=== PATIENT | female | born 1955 | race Caucasian/White ===

== ENCOUNTER → 2022-07-02 08:12 | Outpatient (BNVA) | payer MEDICARE, MEDICAID, SELFPAY | PROVIDERS: Visit Provider Podiatrist Foot & Ankle Surgery | DX: E11.42 Type 2 diabetes mellitus with diabetic polyneuropathy (principal); L60.3 Nail dystrophy; Z79.4 Long term (current) use of insulin | CPT/HCPCS: 99204 ==

== ENCOUNTER → 2022-07-15 08:08 | Outpatient (BNVA) | payer MEDICARE, MEDICAID, SELFPAY | PROVIDERS: Visit Provider Podiatrist Foot & Ankle Surgery | DX: E11.42 Type 2 diabetes mellitus with diabetic polyneuropathy (principal); L60.8 Other nail disorders; L60.3 Nail dystrophy; Z79.84 Long term (current) use of oral hypoglycemic drugs | CPT/HCPCS: 99213 ==

== ENCOUNTER 2022-10-12 14:48 | Outpatient (CLI) | payer MEDICARE, MEDICAID, SELFPAY ==
--- NOTE | 2022-10-12 15:00 | XR_ITS ---
WS: [id number] DEXA (DUAL ENERGY X-RAY ABSORPTIOMETRY) Bone mineral density was performed using a SinDelantal machine. HISTORY: STATUS, ASYMPTOMATIC POSTMENOPAUSAL COMPARISON: None available. Lumbar spine BMD (L1-L4): 0.853 g/cm2 T score: -2.7 Z score: -1.0 Total hip BMD: Left: 0.649 g/cm2. T score: -2.9 Z score: -1.5 Right: 0.635 g/cm2. T score: -3.0 Z score: -1.6 10 year probability of a major osteoporotic fracture is 18% XR/XR DEXA axial skeleton* [id number] IMPRESSION: OSTEOPOROSIS based upon the WHO classification for females.
== END 2022-10-12 14:49 | disposition home or self-care (01) ==
PROVIDERS: PCP Internal Medicine; Visit Provider Internal Medicine
DX: Z78.0 Asymptomatic menopausal state (principal); M81.0 Age-related osteoporosis without current pathological fracture
CPT/HCPCS: 77080

== ENCOUNTER 2022-11-18 13:36 | Outpatient (CLI) | payer MEDICARE, MEDICAID, SELFPAY ==
--- NOTE | 2022-11-18 | XR_ITS ---
WS: [id number] EXAMINATION: XR shoulder LT min 2V* [id number] REASON FOR EXAM: PAIN IN LEFT SHOULDER COMPARISON: None available. ORDER DATE: 11/18/2022 1:59 PM TECHNIQUE: 2 views of the left shoulder were obtained. X-RAY FINDINGS: No fractures or dislocations. Normal motion of the shoulder with internal/external rotation. No degenerative changes. Acromioclavicular joint appears unremarkable. Limited visualization of the adjacent hemithorax is unremarkable. XR/XR shoulder LT min 2V* [id number] IMPRESSION: No fractures or dislocations of the left shoulder.
== END 2022-11-18 13:37 | disposition home or self-care (01) ==
PROVIDERS: PCP Internal Medicine; Visit Provider Internal Medicine
DX: M25.512 Pain in left shoulder (principal)
CPT/HCPCS: 73030

== ENCOUNTER → 2023-04-05 08:32 | Outpatient (BNVA) | payer MEDICARE, MEDICAID, SELFPAY | PROVIDERS: PCP Internal Medicine; Visit Provider Podiatrist Foot & Ankle Surgery | DX: L60.8 Other nail disorders (principal); E11.42 Type 2 diabetes mellitus with diabetic polyneuropathy; L60.3 Nail dystrophy; Z79.4 Long term (current) use of insulin | CPT/HCPCS: 99213 ==

== ENCOUNTER 2023-04-11 16:34 | Emergency (ER) | payer MEDICARE, MEDICAID, SELFPAY ==
[2023-04-11 16:36] VITALS: BP 152/90; PULSE 93; RESP 16; O2SAT 97
--- NOTE | 2023-04-11 16:42 | XRR_ITS ---
PROCEDURE INFORMATION: Exam: XR Right Knee Exam date and time: 04/11/2023 4:54 PM Age: 68 years old Clinical indication: Pain; Knee; Right; Additional info: Injury TECHNIQUE: Imaging protocol: Radiologic exam of the right knee. Views: 3 views. COMPARISON: No relevant prior studies available. FINDINGS: Bones/joints: Subtle intra-articular fracture of the proximal right tibial metaphysis extending into the lateral plateau just lateral to the lateral tibial spine. Moderate-size lipohemarthrosis. Soft tissues: Normal. XR/XR knee RT 3V* [id number] IMPRESSION: 1. Subtle intra-articular fracture of the proximal right tibial metaphysis extending into the lateral plateau just lateral to the lateral tibial spine. 2. Moderate-size lipohemarthrosis.
--- NOTE | 2023-04-11 16:42 | XRR_ITS ---
PROCEDURE INFORMATION: Exam: XR Left Ribs with PA Chest Exam date and time: 04/11/2023 4:57 PM Age: 68 years old Clinical indication: Chest wall pain; Left; Additional info: Fall TECHNIQUE: Imaging protocol: Radiologic exam of the left ribs with PA chest. Views: 3 views COMPARISON: CR XR chest 1V [id number] 11/25/2018 5:40 PM FINDINGS: Lungs: No focal consolidation. Pleural spaces: Unremarkable. No pleural effusion. No pneumothorax. Heart/Mediastinum: Unremarkable. No cardiomegaly. Bones/joints: There is a nondisplaced fracture of the left 6th and possibly 7th ribs laterally. XR/XR ribs LT mn 3V w CXR1V [id number] IMPRESSION: 1. There is a nondisplaced fracture of the left 6th and possibly 7th ribs laterally. 2. No focal consolidation.
[2023-04-11 16:51] LABS: Glucose Point of Care 73 mg/dL (70-110)
--- NOTE | 2023-04-11 16:56 | W.ED.FALL ---
HPI - Fall General: Chief Complaint: Fall Stated Complaint: fall Time Seen by Provider: 04/11/23 16:35 Source: patient Mode of arrival: ambulatory Limitations: no limitations History of Present Illness: 68-year-old female who states that she fell roughly 1 hour ago. She states she tripped and fell outside on the ground she landed on her right knee and has right knee pain she also has some mild left rib pain denies any shortness of breath she denies hitting her head denies any neck pain denies any hip pain. Associated symptoms-after fall: Reports chest pain; Denies abdominal pain, headache(s) or neck pain Review of Systems Const: Denies: fever(s), chills, body aches or change in appetite ENMT: Denies: throat pain or dental pain Card: Reports: chest pain Resp: Denies: dyspnea GI: Denies: abdominal pain, nausea, vomiting or diarrhea Musc: Reports: extremity pain; Denies: neck pain or back pain Skin/Breast: Denies: rash Neuro: Denies: headache(s) Physical Exam Const: COMMON NORMALS: no acute distress, patient oriented x3 and healthy appearing HENMT: COMMON NORMALS: normocephalic and atraumatic HEAD & SCALP: normocephalic and atraumatic Eye: COMMON NORMALS: Equal, round and reactive pupils present and EOMs intact bilaterally PUPIL: Yes Equal, round and reactive pupils present Neck/C-Spine: COMMON NORMALS: full ROM and supple CERVICAL SPINE: No Cervical spine tenderness Chest: COMMONS NORMALS: normal inspection of the chest and normal palpation of entire chest wall Resp: COMMON NORMALS: normal respiratory effort, No retractions, No use of accessory muscles and clear to auscultation bilaterally AUSCULTATION: clear to auscultation bilaterally Cardio: COMMON NORMALS: regular rate, regular rhythm and No murmurs present (Cardio) RATE: regular rate RHYTHM: regular rhythm GI: COMMON NORMALS: Normal to inspection, nondistended, normoactive bowel sounds present, Soft to palpation, non-tender and no masses PALPATION: Yes Soft to palpation Extremity: COMMON NORMALS: full ROM NARRATIVE EXTREMITY EXAM: tenderness over right knee with swelling distal pulses Neuro: COMMON NORMALS: patient oriented x3, moves all extremities and no focal motor deficits Psych: COMMON NORMALS: mental status grossly normal, Normal thought process present and cooperative THOUGHT PROCESS: Normal thought process present Skin: COMMON NORMALS: no rashes or lesions noted and no wounds GENERAL SKIN EXAM: no rashes or lesions noted Course Vital Signs: Vital signs: Vital Signs Pulse Rate 93 04/11/23 16:36 Respiratory Rate 16 04/11/23 16:36 Blood Pressure 152/90 04/11/23 16:36 Pulse Oximetry 97 04/11/23 16:36 Oxygen Delivery Me thod Room Air 04/11/23 16:36 MDM - Fall Medical Decision Making Patient presents for tibial plateau fracture of the right knee patient placed in knee immobilizer and discharged with a wheelchair as well. I did speak to orthopedics Dr. Smith will follow-up with her she does have a rib fracture as well no signs of any intrathoracic injury. Will prescribe her pain meds she is return if worsening. Lab Data Radiology Impressions Knee X-Ray 04/11/23 16:42 IMPRESSION: 1. Subtle intra-articular fracture of the proximal right tibial metaphysis extending into the lateral plateau just lateral to the lateral tibial spine. 2. Moderate-size lipohemarthrosis. Ribs X-Ray 04/11/23 16:42 IMPRESSION: 1. There is a nondisplaced fracture of the left 6th and possibly 7th ribs laterally. 2. No focal consolidation. Knee CT 04/11/23 17:05 IMPRESSION: 1. Intra-articular fracture of the proximal right tibial metaphysis extending into the central aspect of the lateral tibial plateau in the central aspect of the medial tibial plateau with fracture planes traversing the medial and lateral tibial spines. 2. Moderate-sized right-sided lipohemarthrosis. 3. Nondisplaced avulsion fracture of the peripheral aspect of the right lateral tibial plateau. 4. Comminuted minimally displaced fracture of the proximal right fibula. Laboratory Results POC Glucose 73 mg/dL (70-110) 04/11/23 16:48 XR interpretation done by ED provider, pending radiology final review Discharge Plan Discharge Patient Disposition: Home Clinical Impression: Closed fracture of right tibial plateau Qualifiers: Encounter type: initial encounter Qualified Code(s): S82.141A - Displaced bicondylar fracture of right tibia, initial encounter for closed fracture Left rib fracture Qualifiers: Encounter type: initial encounter Rib fracture type: single rib Fall Qualifiers: Encounter type: initial encounter Qualified Code(s): W19.XXXA - Unspecified fall, initial encounter Condition: Stable Prescriptions: New hydrocodone-acetaminophen 5-325 mg tablet 1 tab PO Q6H PRN (Reason: pain) Qty: 14 0RF ondansetron 4 mg tablet,disintegrating 4 mg PO Q6H PRN (Reason: nausea and vomiting) Qty: 14 0RF No Action hydrochlorothiazide 25 mg tablet PO atorvastatin 20 mg tablet PO alendronate 70 mg tablet PO Levemir FlexTouch U100 Insulin 100 unit/mL (3 mL) insulin pen SUBCUT levothyroxine 150 mcg tablet PO lisinopril 40 mg tablet PO gabapentin 100 mg capsule PO Discharge Orders: Discharge ED (Routine); Ordered 04/11/23 Ordered By: Ariana Rodriguez Other Ambulatory Orders: DME: Wheelchair (Order) Location: None Selected Ordered By: Ariana Rodriguez Referrals: Maxine Walker MD [Primary Care Provider] - Ruth Jackman MD [Physician] - 1-3 days Discharge Diet: Advance as tolerated Discharge Activity: Resume usual activity Patient Instructions: Fractures - Knee, Rib Fracture (ED), Opioid Safety Coding Level of Care Code ED Health Information Provider for Janie German
--- NOTE | 2023-04-11 17:05 | CTR_ITS ---
PROCEDURE INFORMATION: Exam: CT Right Lower Extremity Without Contrast, Knee Exam date and time: 04/11/2023 5:26 PM Age: 68 years old Clinical indication: Injury or trauma; Fall; Blunt trauma; Knee; Right TECHNIQUE: Imaging protocol: CT of the right lower extremity without contrast was performed. Exam focused on the knee. Radiation optimization: All CT scans at this facility use at least one of these dose optimization techniques: automated exposure control; mA and/or kV adjustment per patient size (includes targeted exams where dose is matched to clinical indication); or iterative reconstruction. REPORTING DATA: Count of CT and Cardiac NM exams in prior 12 months: This patient has received 0 known CTs and 0 known cardiac nuclear medicine studies in the 12 months prior to the current study. COMPARISON: CR (LOW EXM, ) 04/11/2023 4:54 PM RADIATION DOSE METRICS: Total DLP (mGy-cm): 339.45 FINDINGS: Bones/joints: Moderate-sized lipohemarthrosis. Intra-articular fracture of the proximal right tibial metaphysis extending into the central aspect of the lateral tibial plateau in the central aspect of the medial tibial plateau with fracture planes traversing the medial and lateral tibial spines. Nondisplaced avulsion fracture of the peripheral aspect of the lateral tibial plateau. Comminuted minimally displaced fracture of the proximal right fibula. Soft tissues: Normal. CT/CT knee RT wo con* [id number] IMPRESSION: 1. Intra-articular fracture of the proximal right tibial metaphysis extending into the central aspect of the lateral tibial plateau in the central aspect of the medial tibial plateau with fracture planes traversing the medial and lateral tibial spines. 2. Moderate-sized right-sided lipohemarthrosis. 3. Nondisplaced avulsion fracture of the peripheral aspect of the right lateral tibial plateau. 4. Comminuted minimally displaced fracture of the proximal right fibula.
[2023-04-11] MEDS: HYDROcodone-acetaminophen 7.5-325 mg Tablet 1 TAB PO (17:16)
[2023-04-11 18:03] VITALS: BP 143/98; PULSE 90; O2SAT 95
--- NOTE | 2023-04-11 19:19 | PC.NURSE ---
sent pt home with x2 tripp 5-325 tabs, per ED physicians verbal orders.
[2023-04-11 19:37] VITALS: O2SAT 98
--- NOTE | 2023-04-12 10:24 | DCPLANNER ---
Message was sent to ortho clinic on 04/12/23 at 1026. Clinic to contact patient.
== END 2023-04-11 19:40 | disposition home or self-care (01) ==
PROVIDERS: Emergency Provider Emergency Medicine; PCP Internal Medicine
DX: S22.32XA Fracture of one rib, left side, initial encounter for closed fracture (principal); S82.141A Displaced bicondylar fracture of right tibia, initial encounter for closed fracture; Z79.4 Long term (current) use of insulin; W01.0XXA Fall on same level from slipping, tripping and stumbling without subsequent striking against object, initial encounter
CPT/HCPCS: 29530; 36416; 71101; 73562; 73700; 82962; 99284; E0114

== ENCOUNTER → 2023-04-14 14:38 | Outpatient (BNVA) | payer MEDICARE, MEDICAID, SELFPAY | PROVIDERS: PCP Internal Medicine; Referring Provider Emergency Medicine; Visit Provider Specialist | DX: S82.141A Displaced bicondylar fracture of right tibia, initial encounter for closed fracture (principal); W19.XXXA Unspecified fall, initial encounter; Z46.89 Encounter for fitting and adjustment of other specified devices | CPT/HCPCS: 27530; 73562; 97760; 99204; L1832 ==

== ENCOUNTER 2023-04-14 16:48 | Outpatient (CLI) | payer MEDICARE, MEDICAID, SELFPAY | END 2023-04-14 16:49 | disposition home or self-care (01) | LOC: SPT 16:48 | PROVIDERS: PCP Internal Medicine; Visit Provider Specialist | DX: Z46.89 Encounter for fitting and adjustment of other specified devices (principal); S82.141A Displaced bicondylar fracture of right tibia, initial encounter for closed fracture; W19.XXXA Unspecified fall, initial encounter | CPT/HCPCS: 27530; 27532; 97760; 99204; L1832 ==

== ENCOUNTER → 2023-04-29 15:50 | Outpatient (BNVA) | payer MEDICARE, MEDICAID, SELFPAY | PROVIDERS: PCP Internal Medicine; Visit Provider Nurse Practitioner | DX: S82.141D Displaced bicondylar fracture of right tibia, subsequent encounter for closed fracture with routine healing; W01.0XXD Fall on same level from slipping, tripping and stumbling without subsequent striking against object, subsequent encounter | CPT/HCPCS: 73562; 99024 ==

== ENCOUNTER → 2023-06-09 13:39 | Outpatient (BNVA) | payer MEDICARE, MEDICAID, SELFPAY | PROVIDERS: PCP Internal Medicine; Visit Provider Specialist | DX: S82.141D Displaced bicondylar fracture of right tibia, subsequent encounter for closed fracture with routine healing (principal); X58.XXXD Exposure to other specified factors, subsequent encounter | CPT/HCPCS: 73560; 73562; 73565; 99024 ==

== ENCOUNTER 2023-06-22 15:05 | Inpatient (IN) | payer MEDICARE, MEDICAID, SELFPAY ==
[2023-06-22] VITALS (51 sets, daily range): BP systolic 127–234; BP diastolic 74–143; PULSE 71–100; RESP 12–29; TEMP 36.3–37.3; O2SAT 90–100; BMI 22.8; BMI 24.5
[2023-06-22 15:11] LABS: Glucose Point of Care 42 mg/dL (70-110)
--- NOTE | 2023-06-22 15:14 | XR_ITS ---
WS: [id number] Exam: XR chest 1V portable [id number] Date/Time of Exam: 06/22/2023 3:20 PM Reason For Exam: Intubated Comparison 04/11/2023. An endotracheal tube has been placed and appears to end about 3 cm above the shanika in satisfactory p osition. The lungs are well ventilated. There is mild infiltrate in the upper LEFT lobe. There is ate lectasis in the LEFT lower lobe. The RIGHT lung is clear and fully expanded. Normal cardiomediastinal silhouette. IMPRESSION: 1. ET tube in satisfactory position. 2. Infiltrate in the LEFT upper lobe that might indicate pneumonia. LEFT lower lobe atelectasis also noted.
--- NOTE | 2023-06-22 15:15 | CT_ITS ---
WS: [id number] CT HEAD NONCONTRAST HISTORY: Symptoms of acute stroke TECHNIQUE: Contiguous axial imaging performed through the brain in 2.5 mm imaging. Bone and soft tiss ue windows. Sagittal and coronal reformats reviewed. All CT scans at [facility] use at least one of these dose optimization techniques: automated exposure control; mA and/or kV adjustment per pa tient size (includes targeted exams where dose is matched to clinical indication); or iterative recon struction. DLP: 1003.28 mGy COMPARISON: 11/25/2018 No acute intracranial hemorrhage, midline shift or mass effect. Mild atrophy and small vessel ischemic disease. Slightly greater low-attenuation in the posterior RIG HT frontotemporal lobe. Ventricles: Normal size with no hydrocephalus. No intra displacement of the cerebellar tonsils. Paranasal sinuses: Fluid in the posterior ethmoid air cells. Mastoid air cells: Well pneumatized. Calvarium and scalp: Skull is intact with no soft tissue edema or swelling. IMPRESSION: 1. No acute intracranial hemorrhage or edema. 2. Mild atrophy and small vessel ischemic disease. Notified Micah Mondragon DO at 06/22/2023 3:39 PM.
--- NOTE | 2023-06-22 15:15 | ECG_ITS ---
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 Measurements Intervals [place] Rate: 99 P: 62 DC: 221 QRS: -44 QRSD: 88 T: 58 QT: 369 QTc: 474 Interpretive Statements SINUS RHYTHM WITH FIRST DEGREE AV BLOCK LEFT AXIS DEVIATION [QRS AXIS < -30] MINIMAL VOLTAGE CRITERIA FOR LVH, CONSIDER NORMAL VARIANT [MEETS CRITERIA IN ONE OF: R(aVL), S(V1), R(V5), R(V5/V6)+S(V1)] Compared to ECG 11/25/2018 17:28:40 First degree AV block now present Electronically Signed On 06-22-2023 16:02:10 PHYSICAL THER by Yury Tello M.D. [email or web address]
--- NOTE | 2023-06-22 15:19 | CTR_ITS ---
PROCEDURE INFORMATION: Exam: CTA Head Without And With Contrast, Arteriography Exam date and time: 06/22/2023 3:46 PM Age: 68 years old Clinical indication: Stroke-like symptoms; Altered mental status/memory loss; Additional info: Acute CVA TECHNIQUE: Imaging protocol: Computed tomographic angiography of the head without and with contrast. Exam focused on the arteries. 3D rendering (Not supervised by radiologist): MIP and/or 3D reconstructed images were created by the technologist. Radiation optimization: All CT scans at this facility use at least one of these dose optimization techniques: automated exposure control; mA and/or kV adjustment per patient size (includes targeted exams where dose is matched to clinical indication); or iterative reconstruction. Contrast material: OMNI 350; Contrast volume: 100 ml; Contrast route: INTRAVENOUS (IV); Other technique: STROKE PROTOCOL was implemented. COMPARISON: CT head thrombolytic [id number] 06/22/2023 3:03 PM RADIATION DOSE METRICS: Total DLP (mGy-cm): 997 FINDINGS: ANTERIOR CIRCULATION: Right internal carotid artery: Intracranial segment is patent with no significant stenosis or occlusion. No aneurysm. Right middle cerebral artery: No occlusion or significant stenosis. No aneurysm. Right anterior cerebral artery: No occlusion or significant stenosis. No aneurysm. Left internal carotid artery: Intracranial segment is patent with no significant stenosis. No aneurysm. Left middle cerebral artery: No occlusion or significant stenosis. No aneurysm. Left anterior cerebral artery: No occlusion or significant stenosis. No aneurysm. POSTERIOR CIRCULATION: Right vertebral artery: No occlusion or significant stenosis. No aneurysm. Left vertebral artery: No occlusion or significant stenosis. No aneurysm. Basilar artery: No occlusion or significant stenosis. No aneurysm. Right posterior cerebral artery: No occlusion or significant stenosis. No aneurysm. Left posterior cerebral artery: No occlusion or significant stenosis. No aneurysm. HEAD: Brain: No hemorrhage. No edema. Moderate diffuse cerebral atrophy and sequela of chronic small vessel ischemic disease. No mass effect. Cerebral ventricles: Normal. No ventriculomegaly. Bones/joints: Unremarkable. No acute fracture. Paranasal sinuses: Visualized sinuses are normal. No fluid levels. Mastoid air cells: Visualized mastoids are normal. No mastoid effusion. Soft tissues: Unremarkable. PROCEDURE INFORMATION: Exam: CTA Neck Without And With Contrast Exam date and time: 06/22/2023 3:46 PM Age: 68 years old Clinical indication: Stroke-like symptoms; Altered mental status/memory loss; Additional info: Acute CVA TECHNIQUE: Imaging protocol: Computed tomographic angiography of the neck without and with contrast. Exam focused on the cervical segments of the vasculature. 3D rendering (Not supervised by radiologist): MIP and/or 3D reconstructed images were created by the technologist. Radiation optimization: All CT scans at this facility use at least one of these dose optimization techniques: automated exposure control; mA and/or kV adjustment per patient size (includes targeted exams where dose is matched to clinical indication); or iterative reconstruction. Contrast material: OMNI 350; Contrast volume: 100 ml; Contrast route: INTRAVENOUS (IV); COMPARISON: CT head thrombolytic [id number] 06/22/2023 3:03 PM RADIATION DOSE METRICS: Total DLP (mGy-cm): 997 FINDINGS: Right common carotid artery: No stenosis. No dissection or occlusion. Right internal carotid artery: No stenosis of the extracranial segment. No dissection or occlusion. Right external carotid artery: No occlusion or stenosis of the origin. Left common carotid artery: No stenosis. No dissection or occlusion. Left internal carotid artery: No stenosis of the extracranial segment. No dissection or occlusion. Left external carotid artery: No occlusion or stenosis of the origin. Right vertebral artery: No stenosis. No dissection or occlusion. Left vertebral artery: No stenosis. No dissection or occlusion. Soft tissues: Normal. No significant soft tissue swelling. Bones/joints: No acute fracture. Lungs: Partially visualized left lower lobe atelectasis. CT/CT angio headneck* [id number] IMPRESSION: No large vessel occlusion. ASSESSMENT: ASPECTS ([place] Stroke Program Early CT Score) is 10. IMPRESSION: 1. No stenosis or occlusion. 2. Partially visualized left lower lobe atelectasis. REFERENCES: NASCET CRITERIA. The degree of stenosis in the cervical segment of the internal carotid artery is based on NASCET criteria. Normal is no stenosis. Mild is less than 50% stenosis. Moderate is 50-69% stenosis. Severe is 70% to 99% stenosis. Total occlusion is no detectable patent lumen.
--- NOTE | 2023-06-22 15:19 | PC.PHAR ---
pt is intubated-medications entered are from what yuliana wp and ext med history shows has been filled recently for the pt-yuliana states filled humulin 70/30 u-100 kwikpen 45 units bid on 06/15/23 yuliana states they also had a levemir flexpen 100 units/ml filled 03/01/23 23d/s 34 units bid states not filled since filling the humulin 70-30-
[2023-06-22 15:29] LABS: ABG PCO2 41.5 mmHg (35-45); ABG PH Result 7.39 (7.35-7.45); Alveolar-Arterial Oxygen Gradi 44.9 mmHg (5-10); Arterial Blood Gas Hematocrit 46.7 % (37-47); Base Excess ABG 0.3 mmol/L (-2.0-2.0); Blood Gas Operator Identificat AMH; Blood Gas Sample Site Brachial, left; Blood Gas Sample Type Arterial; Carboxyhemoglobin < 0.0 %THgb (0.4-20.1); HCO3 ABG 25.3 mmol/L (22-26); HGB O2 Sat 97.9 % (95-100); Ionized Calcium Level - ABG 1.2 mmol/L (1.1-1.4); Methemoglobin 0.9 % (0.4-1.5); Oxygen Device VENT; Oxygen Saturation ABG 98.5; PO2 FiO2 Ratio Arterial Blood 0; Potassium Level - ABG 3.7 mmol/L (3.5-5.0); Total Hemoglobin 15.2 g/dL (12-16)
[2023-06-22] MEDS: labetalol 5 mg/mL SDV 20mL 10 MG IV (15:30)
[2023-06-22 15:33] LABS: Glucose Point of Care 207 mg/dL (70-110)
[2023-06-22] MEDS: labetalol 5 mg/mL SDV 20mL 10 MG IVP ×2 (15:36→15:55)
--- NOTE | 2023-06-22 15:37 | ED_ITS ---
HPI - Neuro Symptoms/Deficit 2 General: Chief Complaint: Neuro Symptoms/Deficit Stated Complaint: Stroke alert Time Seen by Provider: 06/22/23 15:14 Source: EMS Mode of arrival: EMS History of Present Illness: 68-year-old female brought in by EMS int ubated. EMS reports she has history of stroke care called for poorly responsive patient. On arrival they stated she had left-sided weakness and left-sided facial droop is extremely hypertensive and hypopneic she was given Versed etomidate and rocuronium and intubated. She does have a history of diabetes mellitus. On arrival here she is brought straight to CT. Blood sugar shortly after arrival was noted to be 42. Unable to score patient on NIH score due to long-acting paralytics. EMS reports last known well was 1 hour prior to arrival. Unable to do full stroke scoring since patient arrives intubated with long-acting paralytics. Weakness in right arm and face are per EMS report. Family did arrive later and reported that patient had been weak throughout the day before she became unresponsive. He also reported she had not eaten normally but had taken all of her regular insulin. Onset (ago): hour(s) Location: right face, right arm and right leg Treatments Prior to Arrival: other (RSI intubation) Review of Systems 2 General: Reports: ROS unobtainable due to endotracheal tube PFSH ED 2 PFSH: Medical History Insulin dependent diabetes mellitus Hypothyroidism Hypertension Social History (Updated 06/22/23 @ 18:18 by Stuart Christianson MD) Smoking and tobacco/nicotine status: never used tobacco/nicotine Alcohol intake: never Substance/Drug Use: never NIH stroke score 2 NIHSS: If Intubated/Physcial Barrier - Explain: Unable to score patient is intubated and paralyzed Physical Exam 2 HENMT: COMMON NORMALS: normocephalic and atraumatic HEAD & SCALP: n ormocephalic and atraumatic Resp: AUSCULTATION: wheezes Cardio: COMMON NORMALS: regular rate, regular rhythm and No murmurs present (Cardio) RATE: regular rate RHYTHM: regular rhythm GI: COMMON NORMALS: Soft to palpation and No hepatosplenomegaly present A USCULTATION: Yes normoactive bowel sounds PALPATION: Yes Soft to palpation, No Tenderness to palpation present (GI), No Guarding due to palpation present (GI) and Yes No hepatosplenomegaly present Extremity: COMMON NORMALS: normal to inspection, capillary refill normal, no clubbing, cyanosis or edema, no calf tenderness and no pedal edema Skin: COMMON NORMALS: no rashes or lesions noted GENERAL SKIN EXAM: no rashes or lesions noted Course 2 Vital Signs: Vital signs: Vital Signs Temperature 97.9 F 06/24/23 04:00 Pulse Rate 75 06/24/23 04:44 Respiratory Rate 16 06/24/23 04:00 Blood Pressure 119/66 06/24/23 04:00 Pulse Oximetry 96 06/24/23 04:00 Oxygen Delivery Me thod Room Air 06/24/23 04:00 Fraction of Inspir ed Oxygen 30 06/22/23 17:50 MDM - Neuro Symptoms/Deficit Medical Decision Making Patient initially arrives as a stroke alert. EMS report in the field. On arrival she is intubated has had long-acting paralytics. And description is that she suddenly slumped over was found unresponsive and had facial weakness and right arm and leg weakness. She has a history of diabetes and hypertension. Not on any anticoagulants. Patient initially proceeded directly CT CT was negative Accu-Chek done in the CT suite was 42. Because of severe neurologic compromise reported in the field and the patient's unresponsive status she was given an amp of D50 and subsequently is given D10 IV. Her blood sugar improved and then decreased again this cycled several times. Conferred with Dr. Vidales were unable to score the patient at this time we do not have enough to warrant giving thrombolytics in addition with her hypoglycemia there is no question that at this point we should not proceed. CTA was done there is no sign of embolism. Patient did have markedly elevated blood pressure was initially given labetalol and then started on nicardipine. Family did arrive later and confirmed that the patient had taken all of her insulin but had not eaten today they were out at several appointments. Patient did eventually begin to arouse she was given a small dose of Versed (2 mg) to help her tolerate the tube better but was not further sedated or paralyzed. She became more and more awake. She was initially placed in soft restraints to prevent her from removing the endotracheal tube. Eventually be sure she became able to follow-up simple commands soft restraints were removed she was extubated with out difficulty and manage her airway fine and also manage her oxygen sats without problem. On chest x-ray she does appear to have a left upper lobe pneumonia. Blood pressure is improved. She may also have some degree of press syndrome although now that her blood sugar is managed and the paralytics have resolved that she is completely recovered to her baseline. After extubation she is found to have no clinically significant deficits. Family confirms they did not see any seizure- like activity prior to ambulance arriving. After extubation blood sugars continue to remain in the 70s despite patient being on a D10 drip. Discussed with hospitalist her hypertensive urgency may have precipitated press syndrome however I suspect that the majority of this is purely hypoglycemia. Will admit her to the ICU continue the nicardipine and D10 drips orders written for ICU. Medical Records I reviewed the patient's medical records. Lab Data I reviewed the patient's lab results. 06/24/23 04:52 06/24/23 04:52 Radiology Impressions Head/Neck CTA 06/22/23 15:19 IMPRESSION: No large vessel occlusion. ASSESSMENT: ASPECTS ([place] Stroke Program Early CT Score) is 10. IMPRESSION: 1. No stenosis or occlusion. 2. Partially visualized left lower lobe atelectasis. REFERENCES: NASCET CRITERIA. The degree of stenosis in the cervical segment of the internal carotid artery is based on NASCET criteria. Normal is no stenosis. Mild is less than 50% stenosis. Moderate is 50-69% stenosis. Severe is 70% to 99% stenosis. Total occlusion is no detectable patent lumen. Laboratory Results WBC 6.56 10^3/uL (3.29-11.43) 06/22/23 17:10 Corrected WBC Cancelled 06/22/23 15:36 RBC 5.32 10^6/uL (3.85-5.65) 06/22/23 17:10 Hgb 15.80 g/dL (11.27-16.99) 06/22/23 17:10 Hct 48.6 % (36-47) H 06/22/23 17:10 MCV 91.4 fl (85-98) 06/22/23 17:10 MCH 29.7 pg (27-33) 06/22/23 17:10 MCHC 32.5 g/dL (30-55) 06/22/23 17:10 RDW 13.5 % (12.1-15.1) 06/22/23 17:10 Plt Count 156 10^3/cmm (157-399) L 06/22/23 17:10 MPV 10.7 fL (7.4-10.4) H 06/22/23 17:10 Gran % Cancelled 06/22/23 15:36 Neut % (Auto) 75.2 % 06/22/23 17:10 Lymph % (Auto) 13.3 % 06/22/23 17:10 [place] % (Auto) 10.1 % 06/22/23 17:10 Eos % (Auto) 0.5 % 06/22/23 17:10 Baso % (Auto) 0.6 % 06/22/23 17:10 Neut # (Auto) 4.94 10^3/uL (1.8-7.7) 06/22/23 17:10 Lymph # (Auto) 0.9 10^3/uL (0.8-4.8) 06/22/23 17:10 [place] # (Auto) 0.7 10^3/uL (0.2-0.9) 06/22/23 17:10 Eos # (Auto) 0.0 10^3/uL (0.0-0.8) 06/22/23 17:10 Baso # (Auto) 0.0 10^3/uL (0.0-0.1) 06/22/23 17:10 Absolute Gran (auto) Cancelled 06/22/23 15:36 Nucleated RBC % (auto) 0 % 06/22/23 17:10 Nucleated RBCs # 0.0 /100WBC 06/22/23 17:10 PT 12.40 SECONDS (12.1-14.9) 06/22/23 15:36 INR 0.90 (0.8-1.2) 06/22/23 15:36 APTT 23.1 SECONDS (23.9-36.7) L 06/22/23 15:36 D-Dimer 3.04 ug/mLFEU (0-0.59) H 06/22/23 15:36 Specimen Type Arterial 06/22/23 15:17 Sample Site Brachial, left 06/22/23 15:17 ABG pH 7.39 (7.35-7.45) 06/22/23 15:17 ABG pCO2 41.5 mmHg (35-45) 06/22/23 15:17 ABG pO2 294.0 mmHg (80.0-100.0) H 06/22/23 15:17 ABG PO2/FiO2 Ratio 0 06/22/23 15:17 ABG HCO3 25.3 mmol/L (22-26) 06/22/23 15:17 ABG O2 Saturation 98.5 06/22/23 15:17 ABG Base Excess 0.3 mmol/L (-2.0-2.0) 06/22/23 15:17 Tyron Test N/a 06/22/23 15:17 A-a O2 Gradient 44.9 mmHg (5-10) H 06/22/23 15:17 Hematocrit 46.7 % (37-47) 06/22/23 15:17 Hgb O2 Saturation 97.9 % (95-100) 06/22/23 15:17 Carboxyhemoglobin < 0.0 %THgb (0.4-20.1) L 06/22/23 15:17 Methemoglobin 0.9 % (0.4-1.5) 06/22/23 15:17 Total Hemoglobin 15.2 g/dL (12-16) 06/22/23 15:17 Sodium 141.0 mmol/L (131-143) 06/22/23 15:17 Potassium 3.7 mmol/L (3.5-5.0) 06/22/23 15:17 Glucose 277.0 mg/dL (70-115) H 06/22/23 15:17 Ionized Calcium 1.2 mmol/L (1.1-1.4) 06/22/23 15:17 O2 Delivery Device Vent 06/22/23 15:17 FiO2 100.0 % 06/22/23 15:17 Tidal Volume 0.40 06/22/23 15:17 PEEP 6.0 cmH20 06/22/23 15:17 Manager Diabetes ID Amh 06/22/23 15:17 Sodium 138 mmol/L (136-145) 06/22/23 15:36 Potassium 3.8 mmol/L (3.5-5.1) 06/22/23 15:36 Chloride 101 mmol/L (98-107) 06/22/23 15:36 Carbon Dioxide 23 mmol/L (22-29) 06/22/23 15:36 Anion Gap 17.8 (5-19) 06/22/23 15:36 BUN 16 mg/dL (8-23) 06/22/23 15:36 Creatinine 0.8 mg/dL (0.5-0.9) 06/22/23 15:36 GFR Calculation 71.8 mL/min (90-130) L 06/22/23 15:36 Glucose 208 mg/dL (65-115) H 06/22/23 15:36 POC Glucose 107 mg/dL (70-110) 06/22/23 18:16 Estimat Average Glucose 146 06/22/23 17:10 Hemoglobin A1c 6.7 % (4.0-6.0) H 06/22/23 17:10 Calculated Osmolality 293 mOsm/kg (285-295) 06/22/23 15:36 Lactic Acid 1.2 mmol/L (0.5-2.2) 06/22/23 15:36 Calcium 8.8 mg/dL (8.5-10.5) 06/22/23 15:36 Magnesium 2.3 mg/dL (1.7-2.3) 06/22/23 15:36 Total Bilirubin 0.6 mg/dL (0.15-1.2) 06/22/23 15:36 AST 32 U/L (0-32) 06/22/23 15:36 ALT 20 U/L (0-33) 06/22/23 15:36 Alkaline Phosphatase 96 U/L (35-105) 06/22/23 15:36 Ammonia 23 umol/L (11-51) 06/22/23 17:10 Creatine Kinase 109 U/L (26-192) 06/22/23 15:36 Creatine Kinase 111 U/L (26-192) 06/22/23 15:36 Troponin T Baseline 13 ng/L (0-10) H 06/22/23 15:36 Troponin T 120 Minute 20.93 ng/L (0-10) H 06/22/23 17:36 Delta Troponin T 7.93 ABS# (0-10) 06/22/23 17:36 Total Protein 7.2 g/dL (6.6-8.7) 06/22/23 15:36 Albumin 4.0 g/dL (3.5-5.2) 06/22/23 15:36 Globulin 3.2 g/dL (1.3-4.6) 06/22/23 15:36 Triglycerides 71 mg/dL (0-150) 06/22/23 17:36 Cholesterol 155 mg/dL (0-200) 06/22/23 17:36 LDL Cholesterol, Calc 81 mg/dL (50-129) 06/22/23 17:36 HDL Cholesterol 60 mg/dL (60-100) 06/22/23 17:36 LDL/HDL Ratio 1.35 RATIO (0.00-3.22) 06/22/23 17:36 Cholesterol/HDL Ratio 2.58 mg/dL (0.0-4.40) 06/22/23 17:36 Lipase 17 U/L (13-60) 06/22/23 15:36 TSH 0.43 uIU/mL (0.27-4.20) 06/22/23 15:36 Free T4 1.67 ng/dL (0.82-1.77) 06/22/23 15:36 Free T3 2.6 PG/ML (2.0-4.4) 06/22/23 15:36 Urine Color Yellow (Yellow) 06/22/23 15:35 Urine Appearance Clear (CLEAR) 06/22/23 15:35 Urine pH 8 (5-7) H 06/22/23 15:35 Ur Specific [place] 1.015 (1.005-1.030) 06/22/23 15:35 Urine Protein 1+ (Negative) H 06/22/23 15:35 Urine Glucose (UA) 2+ (Normal) H 06/22/23 15:35 Urine Ketones 1+ (Negative) H 06/22/23 15:35 Urine Blood Neg (Negative) 06/22/23 15:35 Urine Nitrate Negative (Negative) 06/22/23 15:35 Urine Bilirubin Neg (Negative) 06/22/23 15:35 Prot Sulfosalicylic Acd Positive (Negative) 06/22/23 15:35 Urine Urobilinogen Norm mg/dL (Negative) 06/22/23 15:35 Ur Leukocyte Esterase Negative (Negative) 06/22/23 15:35 Urine RBC None /hpf (0-2) 06/22/23 15:35 Urine WBC 0-4 /hpf (0-5) H 06/22/23 15:35 Ur Squamous Epith Cells None /hpf (0-5) 06/22/23 15:35 Ur Transition Epith Cell 0-4 /hpf 06/22/23 15:35 Ur Renal Epithelial Cell 0-4 /hpf 06/22/23 15:35 Amorphous Sediment Not Reportable 06/22/23 15:35 Urine Bacteria None /hpf (NONE) 06/22/23 15:35 Hyaline Casts 0-4 /lpf H 06/22/23 15:35 Urine Mucus 1+ /hpf 06/22/23 15:35 Salicylates < 0.3 mg/dL (3-10) L 06/22/23 15:36 Urine Opiates Screen Negative ng/mL (Negative) 06/22/23 15:35 Acetaminophen < 5.0 ug/mL (10-30) L 06/22/23 15:36 Ur Barbiturates Screen Negative ng/mL (Negative) 06/22/23 15:35 Ur Phencyclidine Scrn Negative ng/mL (Negative) 06/22/23 15:35 Ur Amphetamines Screen Negative ng/mL (Negative) 06/22/23 15:35 U Benzodiazepines Scrn Negative ng/mL (Negative) 06/22/23 15:35 Urine Cocaine Screen Negative ng/mL (Negative) 06/22/23 15:35 U Marijuana (THC) Screen Negative ng/mL (Negative) 06/22/23 15:35 Ethyl Alcohol < 10 mg/dL (0-10) 06/22/23 15:36 Serum Ketones Negative (Negative) 06/22/23 15:36 All radiology interpretation(s) finalized by discharge Critical Care Time 2 Critical Care Time: Critical Care Time: Yes Total Critical Care Time: 60 Attestation: The high probability of a clinically significant, sudden or life threatening deterioration of the patient's neurologic/respiratory/endocrine system(s) required my full and direct attention, intervention and personal management. The critical care time is as shown. This time is in addition to time spent performing any reported procedures but includes the following: [x] Data and vital sign review and interpretation [x] Patient assessment, examination and intervention [x] Documentation [x] Medication orders and management Discharge Plan Discharge Patient Disposition: Admitted As Inpatient Admit Provider: Stuart Christianson Clinical Impression: Hypoglycemia, PRES (posterior reversible encephalopathy syndrome), Pneumonia, Acute respiratory failure, Hypertensive urgency, Insulin dependent diabetes mellitus Condition: Stable Coding Level of Care Code ED [employer] for Janie German
[2023-06-22] MEDS: iohexol 350 mg/mL 500 mL Btl (per mL) IV (15:48)
[2023-06-22 16:12] LABS: Amphetamines Screen Urine Negative (Negative); Barbiturates Screen Urine Negative (Negative); Benzodiazepines Screen Urine Negative (Negative); Cocaine Screen Urine Negative (Negative); Opiate Screen Urine Negative (Negative); PCP Screen Urine Negative (Negative); THC Screen Urine Negative (Negative)
[2023-06-22] MEDS: piperacillin-tazobactam 3.375 GM in sodium chloride 0.9% (plus) 50 ML IV ×2 (16:13→23:27)
[2023-06-22 16:21] LABS: Add Urine Microscopic? YES; Bilirubin Urine Neg (Negative); Blood Urine Neg (Negative); Glucose Urine UA 2+ (Normal); Ketones Urine 1+ (Negative); Leukocyte Esterase Urine Negative (Negative); Nitrate Urine Negative (Negative); Protein Urine 1+ (Negative); Specific Gravity, Urine 1.015 (1.005-1.030); Sulfosalicylic Acid Urine Positive (Negative); Urine Appearance Clear (CLEAR); Urine Color Yellow (Yellow); Urobilinogen Urine Norm (Negative); pH Urine 8 (5-7)
[2023-06-22 16:22] LABS: Ketone (Acetest) Serum Negative (Negative)
[2023-06-22 16:23] LABS: Troponin(5th) Baseline 13 ng/L (0-10)
[2023-06-22 16:23] LABS: Glucose Point of Care 120 mg/dL (70-110)
[2023-06-22 16:24] LABS: Alanine Aminotransferase 20 U/L (0-33); Alkaline Phosphatase 96 U/L (35-105); Blood Urea Nitrogen 16 mg/dL (8-23); Calcium 8.8 mg/dL (8.5-10.5); Carbon Dioxide 23 mmol/L (22-29); Chloride 101 mmol/L (98-107); Creatine Phosphokinase 111 U/L (26-192); Creatinine Clr Calc Pharmacy 57.5924; Globulin 3.2 g/dL (1.3-4.6); Glomerular Filtration Rate 71.8 mL/min (90-130); Glucose 208 mg/dL (65-115); Lipase 17 U/L (13-60); Magnesium 2.3 mg/dL (1.7-2.3); Osmolality Calculated 293 mOsm/kg (285-295); Sodium 138 mmol/L (136-145); Total Bilirubin 0.6 mg/dL (0.15-1.2); Total Protein 7.2 g/dL (6.6-8.7)
[2023-06-22 16:25] LABS: Add Urine Culture? No; Hyaline Casts Urine 0-4 /lpf; Mucus Urine 1+ /hpf; Renal Epithelial Cells Urine 0-4 /hpf; Transitional Epi Cells Urine 0-4 /hpf; WBC Urine 0-4 /hpf (0-5)
[2023-06-22 16:26] LABS: Lactic Sepsis W/Reflex 1.2 mmol/L (0.5-2.2)
[2023-06-22 16:27] LABS: Acetaminophen < 5.0 ug/mL (10-30); Alcohol Level < 10 mg/dL (0-10); Salicylate < 0.3 mg/dL (3-10)
[2023-06-22 16:28] LABS: Partial Thromboplastin Time 23.1 SECONDS (23.9-36.7)
[2023-06-22 16:29] LABS: Anion Gap 17.8 (5-19); Potassium 3.8 mmol/L (3.5-5.1)
[2023-06-22 16:30] LABS: Aspartate Amino Transferase 32 U/L (0-32)
[2023-06-22] MEDS: nicardipine 20 MG/200 ML PREMIX 50 MG IV (16:40)
[2023-06-22 17:17] LABS: Basophils % 0.6 %; Eosinophils % 0.5 %; Hematocrit 48.6 % (36-47); Lymphocytes # 0.9 10^3/uL (0.8-4.8); Lymphocytes % 13.3 %; Mean Corpuscular HGB Conc 32.5 g/dL (30-55); Mean Corpuscular Hemoglobin 29.7 pg (27-33); Mean Corpuscular Volume 91.4 fl (85-98); Mean Platelet Volume 10.7 fL (7.4-10.4); Monocytes # 0.7 10^3/uL (0.2-0.9); Monocytes % 10.1 %; Neutrophils # 4.94 10^3/uL (1.8-7.7); Neutrophils % 75.2 %; Nucleated Red Blood Cells % 0 %; Platelet Count 156 10^3/cmm (157-399); Red Blood Count 5.32 10^6/uL (3.85-5.65); Red Cell Distribution Width 13.5 % (12.1-15.1); White Blood Count 6.56 10^3/uL (3.29-11.43)
[2023-06-22] MEDS: dextrose 10% 250 ML 1000 ML IV (17:25)
[2023-06-22] MEDS: midazolam 1 mg/mL INJ 2 mL 2 MG IVP (17:34)
[2023-06-22 17:39] LABS: Ammonia 23 umol/L (11-51)
--- NOTE | 2023-06-22 17:47 | ECG_ITS ---
[facility] Test Date: 2023-06-22 Pat Name: Adela Lane Department: Room: Gender: Female Professional Healthcare Representative: : 1955 Requested By: Micah Gu Order Number: [id number] Christopher MD: Yury Tello M.D. Measurements Intervals Stanley Rate: 82 P: 10 GA: 182 QRS: 110 QRSD: 90 T: 6 QT: 398 QTc: 466 Interpretive Statements SINUS RHYTHM POSSIBLE RIGHT VENTRICULAR HYPERTROPHY [SOME/ALL OF: PROMINENT R IN V1, LATE TRANSITION, RAD, APRIL, SSS] Compared to ECG 06/22/2023 15:21:29 First degree AV block no longer present Left-axis deviation no longer present Electronically Signed On 06-23-2023 9:14:12 PT ESCORT by Yury Tello M.D. [id number]
[2023-06-22 18:05] LABS: Troponin 5 2HR 20.93 ng/L (0-10); Troponin 5 2HR Delta 7.93 ABS# (0-10)
--- NOTE | 2023-06-22 18:05 | USCV_ITS ---
Adela Lane Age: 68 Gender: F : 1955 Exam Date: 06/22/2023 19:09 Ordering Phys: Stuart Christianson MD Technologist: VIK Exam Location: [facility] [place] Indication: elevated d-dimer. patient speaks only Kenyan. I have no further history. No LE edema or erythema. HISTORY: elevated d-dimer. patient speaks only [place]. I have no further history. No LE edema or erythema. PROCEDURES: Venous duplex imaging was performed in bilateral lower extremities. The following venous structures were evaluated: common femoral vein, profunda vein, proximal portion of the greater saphenous vein, superficial femoral vein, and the popliteal vein. In addition, the posterior tibial veins were evaluated. FINDINGS: Normal 2-D Doppler and augmentation and compressibility throughout the lower extremity venous structures. Additional imaging through the proximal calf veins also reveals no thrombus. Limited evaluation of the greater saphenous vein is patent with no thrombus. CONCLUSIONS No DVT bilateral lower extremities. Dr. Jeannette Salcido DO (Electronically Signed) Final Date: 23 June 2023 07:35 S
--- NOTE | 2023-06-22 18:07 | PM.HP ---
Providers/Chief Complaint Primary Care Provider: Maxine Walker MD Chief Complaint: Stroke alert History of Present Illness Adela Lane is a 68 year old female with a past medical history of hypertension, hypothyroidism, insulin-dependent type 2 diabetes mellitus, who presents [facility] for unresponsiveness, was a stroke alert, intubated on the field, given rocuronium, endotracheal tube in place, currently patient is intubated, not on sedation, she is able to follow commands, she is [place] speaking, patient's niece and nephew are at bedside and are able to translate for me and she is able to follow commands and answer questions by giving us a thumbs up and nodding at times. According to patient's nephew, Adela lives with him, she recently had a right tibial plateau fracture, she was in a wheelchair, but now is much more ambulatory she is normally functioning, she can take care of herself, no significant hospitalizations no significant health concerns to his nephew's knowledge she has never had a heart attack, never had a stroke, but because of her type 2 diabetes mellitus, recently they have been increasing the dose of her 7030, going from 25, to 35 to 45, last night according to nephew she did not eat much of her breakfast that she did not take her insulin last night. This morning, she had a little breakfast, he thinks potentially cereal, and she did give herself 55 units of 7030. Nephew then tells me that she was at times confused, she would repeat words, repeat numbers, it was as if she was not looking at family numbers but seeing through them, she was acting her normal self, they are actually making an appointment for her over the phone, when she became more significantly confused and less responsive. Nephew does not believe that she had any slurring of words, nephew does not believe that she had any slurring of words, no facial droop, she was sitting in chair, but she was leaning towards 1 side, she became unresponsive, so he called 911. Patient's nephew tells me that one of his family members had had a stroke so he was worried about potential stroke. He did not notice any seizure-like episodes, she did not fall, no loss of consciousness, upon EMS arrival there was concerns for possible left-sided weakness and left-sided facial droop, however patient's nephew denies this, she was hypertensive, hypopneic, she was given Versed, etomidate, rocuronium and intubated on arrival she was a stroke code, she was brought immediately to CT, her blood sugar on arrival was 42, unable to score NIH stroke scale, due to long-acting paralytics, EMS reported last known well normal 1 hour prior to arrival, patient's nephew confirms this, roughly around noon or so, head CT was within normal limits, CTA was within normal limits, neurology was able to see the patient in the ER, unable to score and a stroke scale, given patient was given sedatives and paralytics, given that her normal imaging, she was deemed not a candidate for tPA, CTA, no large vessel occlusion, for hypoglycemia she was given D50, currently on a D10 water as she has persistent hypoglycemia last blood sugar 70. Currently pupils are equal round reactive to light, she tracks me, she is able to look towards me able to move to the left and the right her head, she is able to squeeze my fingers bilaterally, she is able to wiggle her toes, she is able to give me the thumbs up, her nephew translates for me and she is able to follow commands, I do cannot discern any focal weakness, in upper or lower extremities, can discern any facial droop, she is trying to mouth words, which are difficult to make out, currently she is on minimal vent settings, 30% FiO2 CPAP, she is tolerating well, will continue spontaneous breathing trial, as her blood sugars are improving mentation has significantly improved, will consider extubating in the next 15 to 30 minutes. I had a detailed discussion about patient's current clinical condition, I highly suspect that patient has suffered a severe hypoglycemic episode resulting in her unresponsiveness however there is always concern for brainstem event given her hypertensive episode we will continue her on a Cardene drip monitor blood pressures continue aspirin, statin. We discussed if we extubate her and she becomes unresponsive hypopnia, would family to agree for reintubation, they are agreeable, they understand the morbidity and mortality associated with reintubation, voiced understanding of all consents are, confirmed with patient's niece and nephew at bedside the patient is a full code. She also has bilateral calf swelling, it could be fluid, but given her relative immobility after her tibial plateau fracture, will order venous ultrasound. Order D-dimer. Order venous ultrasound, if confirmed with patient's nephew and niece bed multiple times that patient had not had any seizure-like episodes during this whole event Review of Systems General: Reports: ROS unobtainable due to endotracheal tube Medications/Allergies Home Medications Medication Instructions Recorded Confirmed Last Taken Type lisinopril 40 mg tablet 40 mg PO DAILY 07/02/22 06/22/23 Unknown History hydrochlorothiazide 25 mg tablet 25 mg PO DAILY 04/05/23 06/22/23 Unknown History Giovanna Knee Brace #1 ea 04/14/23 06/22/23 Unknown Rx amlodipine 2.5 mg tablet 2.5 mg PO DAILY 06/22/23 06/22/23 Unknown History insulin NPH-regular 70-30 U-100 45 unit SUBCUT BID 06/22/23 06/22/23 Unknown History insulin 100 unit/mL subcutaneous pen (Humulin 70/30 U-100 KwikPen) levothyroxine 125 mcg tablet 125 mcg PO QAM 06/22/23 06/22/23 Unknown History mirtazapine 7.5 mg tablet 7.5 mg PO BEDTIME 06/22/23 06/22/23 Unknown History tramadol 50 mg tablet 50 mg PO QID PRN Pain 06/22/23 06/22/23 Unknown History Allergies Allergy/AdvReac Type Severity Reaction Status Date / Time No Known Allergies Allergy Verified 06/09/23 13:45 PFSH Acute PFSH: Medical History Insulin dependent diabetes mellitus Hypothyroidism Hypertension Social History (Updated 06/22/23 @ 18:18 by Stuart Christianson MD) Smoking and tobacco/nicotine status: never used tobacco/nicotine Alcohol intake: never Substance/Drug Use: never Vitals/I&O/Wt Last Vital Signs Pulse 79 06/22/23 17:40 Resp 18 06/22/23 17:50 BP 177/98 06/22/23 17:40 Pulse Ox 100 06/22/23 17:40 O2 Del Method Mechanical Ventilation 06/22/23 15:16 FiO2 30 06/22/23 17:50 06/22/23 06/22/23 06/22/23 06:59 14:59 22:59 Intake Total 234.167 / 234.167 Balance 234.167 / 234.167 Weight last 48 hrs Weight 56.699 kg Physical Exam Const: COMMON NORMALS: no acute distress Eye: COMMON NORMALS: Equal, round and reactive pupils present and EOMs intact bilaterally Neck/C-Spine: COMMON NORMALS: no lymphadenopathy Lymph: LYMPHATIC: no lymphadenopathy noted Resp: COMMON NORMALS: normal respiratory effort, No retractions, No use of accessory muscles and clear to auscultation bilaterally AUSCULTATION: clear to auscultation bilaterally Cardio: COMMON NORMALS: regular rate, regular rhythm, S1 normal heart sound present and S2 normal heart sound present RATE: regular rate RHYTHM: regular rhythm HEART SOUNDS: S1 normal heart sound present and S2 normal heart sound present GI: COMMON NORMALS: Normal to inspection, nondistended, normoactive bowel sounds present, Soft to palpation and non-tender Extremity: COMMON NORMALS: no pedal edema Neuro: COMMON NORMALS: moves all extremities and no focal motor deficits OTHER: Can follow commands no facial droop, Urinary Catheter Management: Bailey: Cath Placed During This Visit: yes Urinary Catheter Date of Insertion: 06/22/23 Urinary Catheter Time of Insertion: 15:37 Data 06/22/23 17:10 06/22/23 15:36 Micro: Microbiology 06/22/23 17:10 Blood Culture - Preliminary Blood SPECIMEN COLLECTED 06/22/23 15:36 Blood Culture - Preliminary Blood SPECIMEN COLLECTED A&P Assessment and plan (1) Hypertensive urgency: (2) Altered mental status: (3) Hypoglycemia: (4) Acute respiratory failure: (5) Pneumonia: (6) PRES (posterior reversible encephalopathy syndrome): Plan Altered mental status -Likely hypoglycemic event, no reported seizure-like episodes -I cannot discern any focal weakness, she is following all commands, pupils equal round reactive to light, CT head within normal limits, CT head and neck within normal limits, unlikely to be a stroke nonetheless continue aspirin, statin -Will order cardiac echo, -Possibly hypertensive urgency press syndrome playing a role due to hyperglycemia, continue nicardipine drip -Neurochecks, aspiration precautions, night stroke scale, seizure precautions Acute hypoglycemia -Blood sugars remain in the 70s, despite D50, D10 water -Continue to monitor in ICU closely, D10 water -Glycemia protocol -Patient took 7030 55 units, roughly at 9 or so -Confirmed with family that patient does not take glipizide or glimepiride Acute respiratory failure -No history of lung disease, no history of smoking -Likely secondary to hypoglycemic event altered mental status -Currently tolerating spontaneous breathing trial well -If difficulty extubating, will keep her on gentle Precedex, propofol throughout the night and plan on extubation early in the morning -Continue spontaneous breathing trial, tidal volume, minimize FiO2 -Will consider extubation in the next 30 minutes or so based on clinical progress -Currently off sedation, paralytic has worn off she can follow commands -Does not look in respiratory distress, does not appear to be overbreathing the vent, no tachypnea, no tachycardia, normotensive, following commands, -Will monitor -Will order venous ultrasound D-dimer, will consider CT angiogram of the chest, as patient has been relatively immobile and she had an unresponsive episode Aspiration pneumonia -Sputum culture, blood cultures -Continue Zosyn Hypertensive urgency, status post several doses of labetalol -With possible press syndrome -Continue Cardene drip -Slowly titrate blood pressure, avoid sudden drops in blood pressure -Telemetry monitoring -See EKGs, short troponins, telemetry monitoring Type 2 diabetes mellitus, hold all insulin, hypoglycemia protocol Hypothyroidism, check TSH, T3, T4 Mild troponin elevation, -Serial EKGs, sort of possible telemetry monitoring a cardiac echo -Aspirin, statin Attestations Medical Necessity Statement*: Patient requires hospitalization, inpatient, greater than 2 minutes, due to altered mental status, hypoglycemic event, respiratory failure, pneumonia Coding Level of Care Code Critical Care >/= 30 minutes Critical care time (in minutes): 55 The high probability of a clinically significant, sudden or life threatening deterioration, as referenced in this documentation, required my full and direct attention, intervention and personal management. The critical care time shown is in addition to time spent performing any reported separately billable procedures and includes the following: [x] Data and vital sign review and interpretation [x] Patient assessment, examination and intervention [x] Medication orders and management [x] Patient/Family updates as able [x] Care Coordination and Documentation. Diagnoses Hypertensive urgency I16.0 Altered mental status R41.82 Hypoglycemia E16.2 Acute respiratory failure J96.00 Pneumonia J18.9 PRES (posterior reversible encephalopathy syndrome) I67.83
--- NOTE | 2023-06-22 18:18 | USCV_ITS ---
Adela Lane Age: 68 Gender: F : 1955 Exam Date: 06/22/2023 19:37 Ordering Phys: Stuart Christianson MD Technologist: VIK Exam Location: [facility] [place] Indication: order says unresponsive. Patient speaks only [place]. No further history available. BP: 177 / 98 HR: 86 Rhythm: Sinus Technical Quality: Adequate MEASUREMENTS (Male / Female) Normal Values 2D ECHO LV Diastolic Diameter PLAX 3.4 cm 4.2 - 5.9 / 3.9 - 5.3 cm IVS Diastolic Thickness 1.1 cm 0.6 - 1.0 / 0.6 - 0.9 cm IVS Systolic Thickness 1.7 cm LVPW Diastolic Thickness 1.4 cm 0.6 - 1.0 / 0.6 - 0.9 cm LVPW Systolic Thickness 1.3 cm LVOT Diameter 1.7 cm LV Ejection Fraction 2D Teich 68.9 % LV Ejection Fraction MOD 2C 72.5 % LV Ejection Fraction 2C AL 0.0 % LA Diameter 2.7 cm Aorta at Sinotubular Diameter 2.0 cm IVC Diameter 1.1 cm M-MODE LA Ao Ratio MM 1.0 AV Cusp Separation MM 2.0 cm DOPPLER AV Peak Velocity 123.0 cm/s LVOT Peak Velocity 124.0 cm/s AV Area Cont Eq vti 2.2 cm squared AV Area Cont Eq pk 2.3 cm squared MV Peak Velocity 100.0 cm/s MV Area PHT 2.1 cm squared Mitral E to A Ratio 0.6 TV Peak E Velocity 48.0 cm/s PV Peak Velocity 98.0 cm/s FINDINGS Left Ventricle Left ventricle is normal in size. LV systolic function is normal with EF of 60-65%. No regional wall motion abnormalities are seen. Moderate left ventricular hypertrophy. Grade 1 diastolic dysfunction Right Ventricle Normal in size and function Right Atrium Normal in size Left Atrium Normal in size Mitral Valve Mild mitral annular calcification. Mild mitral regurgitation. Aortic Valve Structurally normal aortic valve. No significant stenosis or regurgitation. Tricuspid Valve Mild tricuspid regurgitation. Insufficient TR jet to evaluate RVSP. Pulmonic Valve Not well visualized Pericardium Normal Aorta Normal in size IVC Appears to be normal CONCLUSIONS LV systolic function is normal with EF of 60 to 65%. Moderate left ventricular hypertrophy. Grade 1 diastolic dysfunction. Mild mitral regurgitation. Mild tricuspid regurgitation No comparison studies are available Yury Tello MD (Electronically Signed) Final Date: 23 June 2023 08:53 S
[2023-06-22 18:19] LABS: Glucose Point of Care 107 mg/dL (70-110)
[2023-06-22 18:19] LABS: Glucose Point of Care 70 mg/dL (70-110)
[2023-06-22 18:26] LABS: Creatine Phosphokinase 109 U/L (26-192); Thyroid Stimulating Hormone 0.43 uIU/mL (0.27-4.20)
[2023-06-22 18:33] LABS: D Dimer 3.04 ug/mLFEU (0-0.59)
[2023-06-22 18:46] LABS: Glucose Point of Care 101 mg/dL (70-110)
--- NOTE | 2023-06-22 19:27 | PC.NURSE ---
REceived patient form ER staff at 1830. Patient is alert and oriented to person, place, time, and situation. Nephew at bedside is providing translation as patient speaks chilean and almost no czech. BP: 146/79, HR: 81, RR: 18, Temp: 97.4. Blood sugar: 101. D10 is infusing.
[2023-06-22 19:32] LABS: Chol HDL Ratio 2.58 mg/dL (0.0-4.40); Cholesterol 155 mg/dL (0-200); HDL Cholesterol 60 mg/dL (60-100); LDL Cholesterol Calculated 81 mg/dL (50-129); LDL HDL Ratio 1.35 RATIO (0.00-3.22); Triglycerides 71 mg/dL (0-150)
--- NOTE | 2023-06-22 19:32 | PC.NURSE ---
NUrse performed Bedside swallow eval. Patient was able to easily drink/eat water and ice chips. No signs of dysphagia or aspiration.
[2023-06-22 20:09] LABS: Glucose Point of Care 111 mg/dL (70-110)
[2023-06-22] MEDS: dextrose 10% 1,000 ML 100 ML IV (20:16)
[2023-06-22] MEDS: aspirin 81 mg EC Tablet PO (20:27)
[2023-06-22] MEDS: atorvastatin 40 mg Tablet PO (20:27)
[2023-06-22 20:32] LABS: Estmated Average Glucose 146; Hemoglobin A1C 6.7 % (4.0-6.0)
[2023-06-22] MEDS: pantoprazole 40 mg SDV IVP (20:33)
[2023-06-22] MEDS: heparin drip 25,000 UNIT/500 ML PREMIX 17.0399999999999991 UNIT IV (20:43)
[2023-06-22 21:01] LABS: Glucose Point of Care 121 mg/dL (70-110)
[2023-06-22 22:02] LABS: Troponin 5 6HR 25.57 ng/L (0-10)
--- NOTE | 2023-06-22 22:09 | ECG_ITS ---
[facility] Test Date: 2023-06-22 Pat Name: Adela Lane Department: Room: [facility] Gender: Female Membership Sales Advisor: : 1955 Requested By: Micah Gu Order Number: [id number] Christopher MD: Yury Tello M.D. Measurements Intervals [place] Rate: 90 P: 11 AR: 183 QRS: -54 QRSD: 91 T: 37 QT: 362 QTc: 443 Interpretive Statements SINUS RHYTHM PATTERN CONSISTENT WITH PULMONARY DISEASE LEFT ANTERIOR FASCICULAR BLOCK [QRS AXIS <= -45, QR IN I, RS IN II] MINIMAL VOLTAGE CRITERIA FOR LVH, CONSIDER NORMAL VARIANT [MEETS CRITERIA IN ONE OF: R(aVL), S(V1), R(V5), R(V5/V6)+S(V1)] Compared to ECG 06/22/2023 18:04:02 Left anterior fascicular block now present Electronically Signed On 06-23-2023 9:14:04 ARCHITECTURAL DRAFTING INSTRUCTOR by Yury Tello M.D. [email or web address]
[2023-06-22 22:13] LABS: Free T4 Free Thyroxine 1.67 ng/dL (0.82-1.77); T3 Free 2.6 PG/ML (2.0-4.4)
[2023-06-22 22:17] LABS: Troponin 5 6HR Delta 12.57 ng/L (0-12)
[2023-06-22 22:17] LABS: Glucose Point of Care 147 mg/dL (70-110)
[2023-06-22 23:05] LABS: Glucose Point of Care 168 mg/dL (70-110)
[2023-06-23] VITALS (23 sets, daily range): BP systolic 103–135; BP diastolic 60–78; PULSE 72–90; RESP 13–26; TEMP 36.8–37.3; O2SAT 91–97
[2023-06-23 00:14] LABS: Glucose Point of Care 175 mg/dL (70-110)
[2023-06-23 01:10] LABS: Glucose Point of Care 180 mg/dL (70-110)
[2023-06-23 02:03] LABS: Glucose Point of Care 203 mg/dL (70-110)
[2023-06-23 02:57] LABS: Glucose Point of Care 237 mg/dL (70-110)
[2023-06-23 02:58] LABS: Basophils # 0.1 10^3/uL (0.0-0.1); Basophils % 0.7 %; Eosinophils % 0.5 %; Hematocrit 39.6 % (36-47); Lymphocytes # 1.8 10^3/uL (0.8-4.8); Lymphocytes % 24.1 %; Mean Corpuscular HGB Conc 33.8 g/dL (30-55); Mean Corpuscular Hemoglobin 30.5 pg (27-33); Mean Platelet Volume 10.5 fL (7.4-10.4); Monocytes # 0.8 10^3/uL (0.2-0.9); Monocytes % 10.7 %; Neutrophils % 63.7 %; Nucleated Red Blood Cells % 0 %; Platelet Count 163 10^3/cmm (157-399); Red Cell Distribution Width 13.4 % (12.1-15.1); White Blood Count 7.38 10^3/uL (3.29-11.43)
--- NOTE | 2023-06-23 03:05 | PC.NURSE ---
NIH Scale: Unable to accurately access stroke scale. Language barrier prevents assessment of categories 9 & 10. Answerers in remaining categories were completed w/ difficulty, w/ help from family member at bedside who is acting as the pts miniature train driver.
[2023-06-23 03:19] LABS: Alanine Aminotransferase 17 U/L (0-33); Albumin Level 3.5 g/dL (3.5-5.2); Alkaline Phosphatase 82 U/L (35-105); Anion Gap 16.8 (5-19); Aspartate Amino Transferase 22 U/L (0-32); Blood Urea Nitrogen 16 mg/dL (8-23); Calcium 8.4 mg/dL (8.5-10.5); Carbon Dioxide 22 mmol/L (22-29); Chloride 99 mmol/L (98-107); Creatinine Clr Calc Pharmacy 47.5203; Globulin 2.6 g/dL (1.3-4.6); Glomerular Filtration Rate 55.5 mL/min (90-130); Glucose 238 mg/dL (65-115); Magnesium 1.9 mg/dL (1.7-2.3); Osmolality Calculated 287 mOsm/kg (285-295); Phosphorus 3.5 mg/dL (2.5-4.5); Potassium 3.8 mmol/L (3.5-5.1); Sodium 134 mmol/L (136-145); Total Bilirubin 0.8 mg/dL (0.15-1.2); Total Protein 6.1 g/dL (6.6-8.7)
--- NOTE | 2023-06-23 03:21 | PC.NURSE ---
BG 230's: Notified Dr. Gongora of increased BG on D10 drip. New order to decrease rate from 75ml/hr to 25ml/hr.
[2023-06-23] MEDS: heparin 5,000 unit/mL INJ 1 mL IV (03:27)
[2023-06-23 04:09] LABS: Glucose Point of Care 229 mg/dL (70-110)
[2023-06-23 05:12] LABS: Glucose Point of Care 234 mg/dL (70-110)
[2023-06-23] MEDS: levothyroxine 125 mcg Tablet PO (05:54)
[2023-06-23 06:02] LABS: Glucose Point of Care 225 mg/dL (70-110)
[2023-06-23 06:54] LABS: Glucose Point of Care 237 mg/dL (70-110)
--- NOTE | 2023-06-23 07:00 | CT_ITS ---
WS: [id number] CT CHEST ANGIOGRAPHY WITH REFORMATS HISTORY: unresponsiveness, resp failure, elevated d dimer TECHNIQUE: Contiguous axial images are obtained through the chest during arterial injection of intrav enous contrast. Images are reconstructed to evaluate the pulmonary arteries. MIP imaging also reviewe d. All CT scans at [facility] use at least one of these dose optimization techniques: automat ed exposure control; mA and/or kV adjustment per patient size (includes targeted exams where dose is matched to clinical indication); or iterative reconstruction. CONTRAST: Omnipaque 350; 100 mL IV. DLP: 297.87 mGy.cm COMPARISON: None available. Good opacification of the pulmonary arteries. No filling defects or pulmonary embolism. Mild atherosc lerosis aorta. No dilatation of the aorta. Heart is normal size. No pericardial or pleural effusions. No mediastinal or hilar adenopathy. Lungs are mildly hyperinflated. There is mild breathing motion artifact. No pulmonary mass or pneumon ia. 3 mm micronodule LEFT lung base. Small hiatal hernia. Slight increase in thoracic kyphosis. IMPRESSION: 1. No pulmonary embolism. 2. No pneumonia. 3. No adenopathy.
[2023-06-23] MEDS: piperacillin-tazobactam 3.375 GM in sodium chloride 0.9% (plus) 50 ML IV (07:53)
[2023-06-23] MEDS: hydroCHLOROthiazide 25 mg Tablet PO (07:54)
[2023-06-23] MEDS: aspirin 81 mg EC Tablet PO (07:54)
[2023-06-23] MEDS: lisinopril 20 mg Tablet 40 MG PO (07:54)
[2023-06-23 09:35] LABS: Glucose Point of Care 347 mg/dL (70-110)
[2023-06-23 10:18] LABS: Partial Thromboplastin Time 163.8 SECONDS (23.9-36.7)
[2023-06-23] MEDS: iohexol 350 mg/mL 500 mL Btl (per mL) IV (10:51)
[2023-06-23 11:36] LABS: Glucose Point of Care 438 mg/dL (70-110)
[2023-06-23] MEDS: sodium chloride 0.9% 1,000 ML 50 ML IV (12:04)
[2023-06-23] MEDS: insulin lispro 100 unit/1 mL SUBCUT ×3 (12:04→21:57)
--- NOTE | 2023-06-23 12:24 | P.PN_ITS ---
Subjective 2 Subjective: Patient was seen this morning, yesterday evening in ICU she was extubated, on room air, she was alert oriented x 3, following all commands, patient's nephew is at bedside, was able to translate for me, she has no complaints no fevers, no chills, no cough she did not remember the event well, she is 100% sure she only took 55 units of 7030, no chest pain, no palpitations, plan for today history of CT angiogram of her chest given elevated D-dimer and troponins, she has no chest pain complaints, will await her cardiac echo, continue to monitor for the next 24 hours monitor blood sugars, will recommend medical floors, she is agreeable we will have PT OT work with her speech therapy work with her, she is agreeable, no slurring of words, no facial droop, she follows all commands, no focal weakness, Vitals/I&O/Wt Last Vital Signs Temp 99.2 F 06/23/23 05:00 Pulse 84 06/23/23 11:05 Resp 17 06/23/23 11:05 BP 121/73 06/23/23 11:00 Pulse Ox 97 06/23/23 11:05 O2 Del Method Room Air 06/23/23 11:05 FiO2 30 06/22/23 17:50 06/22/23 06/23/23 06/23/23 22:59 06:59 14:59 Intake Total 807.500 / 807.500 744.131 / 1551.631 757.211 / 757.211 Output Total 350 / 350 Balance 807.500 / 807.500 394.131 / 1201.631 757.211 / 757.211 Weight last 48 hrs Weight 60.736 kg Weight 60.838 kg Weight 56.699 kg Physical Exam 2 Const: COMMON NORMALS: no acute distress and patient oriented x3 Resp: COMMON NORMALS: normal respiratory effort, No retractions, No use of accessory muscles and clear to auscultation bilaterally AUSCULTATION: clear to auscultation bilaterally Cardio: COMMON NORMALS: regular rate, regular rhythm, S1 normal heart sound present and S2 normal heart sound present RATE: regular rate RHYTHM: r egular rhythm HEART SOUNDS: S1 normal heart sound present and S2 normal heart sound present GI: COMMON NORMALS: Normal to inspection, nondistended, normoactive bowel sounds present and non-tender Extremity: COMMON NORMALS: no pedal edema Neuro: COMMON NORMALS: patient oriented x3, CN's II-XII intact bilaterally, moves all extremities and no focal motor deficits Psych: COMMON NORMALS: mental status grossly normal Urinary Catheter Management: Bailey: Cath Placed During This Visit: yes Reason for Continuing Indwelling Catheter: Accurate Measurement of Urinary Output in Critically Ill Patients Urinary Catheter Date of Insertion: 06/22/23 Urinary Catheter Time of Insertion: 15:37 Data 06/23/23 02:53 06/23/23 02:53 Micro: Microbiology 06/22/23 15:05 Gram Stain - Final Sputum - Endotracheal Tube Aspirate 06/22/23 17:10 Blood Culture - Preliminary Blood SPECIMEN COLLECTED 06/22/23 15:36 Blood Culture - Preliminary Blood SPECIMEN COLLECTED A&P Assessment and plan (1) Hypertensive urgency: (2) Altered mental status: (3) Hypoglycemia: (4) Acute respiratory failure: (5) Pneumonia: (6) PRES (posterior reversible encephalopathy syndrome): Plan Altered mental status, resolved -Likely hypoglycemic event, no reported seizure-like episodes -I cannot discern any focal weakness, she is following all commands, pupils equal round reactive to light, CT head within normal limits, CT head and neck within normal limits, unlikely to be a stroke nonetheless continue aspirin, statin -Will order cardiac echo, -Possibly hypertensive urgency press syndrome playing a role due to hyperglycemia, continue nicardipine drip -Neurochecks, aspiration precautions, night stroke scale, seizure precautions Acute hypoglycemia, resolved -Blood sugars remain in the 70s, despite D50, D10 water -Moved to medical floors, low-dose sliding scale -Glycemia protocol -Patient took 7030 55 units, roughly at 9 or so -Confirmed with family that patient does not take glipizide or glimepiride Acute respiratory failure, extubated to room air, resolved -No history of lung disease, no history of smoking -CT angiogram of the chest, venous ultrasound, cardiac echo -Monitor respiratory status closely, Aspiration pneumonia -Sputum culture, blood cultures -Continue augmentin Hypertensive urgency, status post several doses of labetalol -With possible press syndrome -Continue home medication -Slowly titrate blood pressure, avoid sudden drops in blood pressure -Telemetry monitoring -See EKGs, short troponins, telemetry monitoring Type 2 diabetes mellitus, hold all insulin, hypoglycemia protocol Hypothyroidism, check TSH, T3, T4 Mild troponin elevation, -Serial EKGs, sort of possible telemetry monitoring a cardiac echo -Aspirin, statin Attestations 2 Medical Necessity Statement*: Patient requires hospitalization, for acute hyperglycemia, respiratory failure aspiration ammonia hypertensive urgency altered mental status acute hypoglycemia event Diagnoses Hypertensive urgency I16.0 Altered mental status R41.82 Hypoglycemia E16.2 Acute respiratory failure J96.00 Pneumonia J18.9 PRES (posterior reversible encephalopathy syndrome) I67.83
[2023-06-23 15:10] LABS: Partial Thromboplastin Time 30.6 SECONDS (23.9-36.7)
[2023-06-23 16:57] LABS: Glucose Point of Care 143 mg/dL (70-110)
--- NOTE | 2023-06-23 17:09 | PC.NURSE ---
Patient transferred to Medical surgical floor room 254-2 via wheelchair, on room air, no complaints or requests at the time of transfer, KVNG, MS nurse at bedside, see charted stable vitals, paper chart left with staff at front end developer.
[2023-06-23] MEDS: amoxicillin-clav 875-125 mg Tablet 1 TAB PO (17:41)
[2023-06-23] MEDS: pantoprazole 40 mg SDV IVP (18:06)
[2023-06-23] MEDS: mirtazapine 15 mg Tablet 7.5 MG PO (20:33)
[2023-06-23] MEDS: atorvastatin 40 mg Tablet PO (20:34)
[2023-06-23 21:42] LABS: Glucose Point of Care 306 mg/dL (70-110)
[2023-06-23] MEDS: enoxaparin 40 mg/0.4 mL Syringe SUBCUT (22:13)
[2023-06-24 00:43] VITALS: BP 123/70; PULSE 80; RESP 13; TEMP 36.7; O2SAT 96
[2023-06-24 04:00] VITALS: BP 119/66; PULSE 75; RESP 16; TEMP 36.6; O2SAT 96
[2023-06-24 04:44] VITALS: PULSE 75
[2023-06-24 04:59] VITALS: BMI 26.6
[2023-06-24 05:18] LABS: Eosinophils # 0.1 10^3/uL (0.0-0.8); Eosinophils % 3.4 %; Hematocrit 38.5 % (36-47); Lymphocytes # 1.4 10^3/uL (0.8-4.8); Lymphocytes % 34.7 %; Mean Corpuscular HGB Conc 32.5 g/dL (30-55); Mean Corpuscular Hemoglobin 30.5 pg (27-33); Mean Corpuscular Volume 93.9 fl (85-98); Mean Platelet Volume 11.4 fL (7.4-10.4); Monocytes # 0.5 10^3/uL (0.2-0.9); Monocytes % 12.9 %; Neutrophils # 1.97 10^3/uL (1.8-7.7); Neutrophils % 47.8 %; Nucleated Red Blood Cells % 0 %; Platelet Count 136 10^3/cmm (157-399); Red Cell Distribution Width 13.5 % (12.1-15.1); White Blood Count 4.12 10^3/uL (3.29-11.43)
[2023-06-24 05:44] LABS: Alanine Aminotransferase 15 U/L (0-33); Albumin Level 3.3 g/dL (3.5-5.2); Alkaline Phosphatase 79 U/L (35-105); Aspartate Amino Transferase 17 U/L (0-32); Blood Urea Nitrogen 14 mg/dL (8-23); Calcium 8.6 mg/dL (8.5-10.5); Carbon Dioxide 23 mmol/L (22-29); Chloride 107 mmol/L (98-107); Creatinine Clr Calc Pharmacy 61.6542; Globulin 2.6 g/dL (1.3-4.6); Glomerular Filtration Rate 71.8 mL/min (90-130); Glucose 171 mg/dL (65-115); Magnesium 2.1 mg/dL (1.7-2.3); Osmolality Calculated 297 mOsm/kg (285-295); Phosphorus 3.8 mg/dL (2.5-4.5); Sodium 141 mmol/L (136-145); Total Bilirubin 0.6 mg/dL (0.15-1.2); Total Protein 5.9 g/dL (6.6-8.7)
[2023-06-24] MEDS: levothyroxine 125 mcg Tablet PO (05:57)
[2023-06-24 06:08] LABS: Glucose Point of Care 230 mg/dL (70-110)
[2023-06-24 08:00] VITALS: BP 136/73; PULSE 85; RESP 16; TEMP 36.7; O2SAT 94
[2023-06-24] MEDS: insulin aspart 70/30 100 units/1 mL 15 UNIT SUBCUT (09:12)
[2023-06-24] MEDS: hydroCHLOROthiazide 25 mg Tablet PO (09:12)
[2023-06-24] MEDS: amlodipine 5 mg Tablet 2.5 MG PO (09:12)
[2023-06-24] MEDS: aspirin 81 mg EC Tablet PO (09:12)
[2023-06-24] MEDS: amoxicillin-clav 875-125 mg Tablet 1 TAB PO (09:12)
[2023-06-24] MEDS: lisinopril 20 mg Tablet 40 MG PO (09:12)
--- NOTE | 2023-06-24 09:43 | PM.DCS ---
Discharge Providers Date of Admission: 06/22/23 18:24 Date of Discharge: June 24, 2023 Attending Provider at Admission: Stuart Christianson MD Attending Provider at Discharge: Stuart Christianson MD Primary Care Provider: Maxine Walker MD Diagnoses at Discharge Discharge Diagnosis (1) Hypertensive urgency: Status: Acute (2) Altered mental status: Status: Acute (3) Hypoglycemia: Status: Acute (4) Acute respiratory failure: Status: Acute (5) Pneumonia: Status: Acute (6) PRES (posterior reversible encephalopathy syndrome): Status: Acute Reason for Visit Reason for Visit: Stroke alert Hospital Course Hospital Course Adela Lane is a 68 year old female with a past medical history of hypertension, hypothyroidism, insulin-dependent type 2 diabetes mellitus, who presents [facility] for unresponsiveness, was a stroke alert, intubated on the field, given rocuronium, endotracheal tube in place, currently patient is intubated, not on sedation, she is able to follow commands, she is [place] speaking, patient's niece and nephew are at bedside and are able to translate for me and she is able to follow commands and answer questions by giving us a thumbs up and nodding at times. According to patient's nephew, Adela lives with him, she recently had a right tibial plateau fracture, she was in a wheelchair, but now is much more ambulatory she is normally functioning, she can take care of herself, no significant hospitalizations no significant health concerns to his nephew's knowledge she has never had a heart attack, never had a stroke, but because of her type 2 diabetes mellitus, recently they have been increasing the dose of her 7030, going from 25, to 35 to 45, last night according to nephew she did not eat much of her breakfast that she did not take her insulin last night. This morning, she had a little breakfast, he thinks potentially cereal, and she did give herself 55 units of 7030. Nephew then tells me that she was at times confused, she would repeat words, repeat numbers, it was as if she was not looking at family numbers but seeing through them, she was acting her normal self, they are actually making an appointment for her over the phone, when she became more significantly confused and less responsive. Nephew does not believe that she had any slurring of words, nephew does not believe that she had any slurring of words, no facial droop, she was sitting in chair, but she was leaning towards 1 side, she became unresponsive, so he called 911. Patient's nephew tells me that one of his family members had had a stroke so he was worried about potential stroke. He did not notice any seizure-like episodes, she did not fall, no loss of consciousness, upon EMS arrival there was concerns for possible left-sided weakness and left-sided facial droop, however patient's nephew denies this, she was hypertensive, hypopneic, she was given Versed, etomidate, rocuronium and intubated on arrival she was a stroke code, she was brought immediately to CT, her blood sugar on arrival was 42, unable to score NIH stroke scale, due to long-acting paralytics, EMS reported last known well normal 1 hour prior to arrival, patient's nephew confirms this, roughly around noon or so, head CT was within normal limits, CTA was within normal limits, neurology was able to see the patient in the ER, unable to score and a stroke scale, given patient was given sedatives and paralytics, given that her normal imaging, she was deemed not a candidate for tPA, CTA, no large vessel occlusion, for hypoglycemia she was given D50, currently on a D10 water as she has persistent hypoglycemia last blood sugar 70. Currently pupils are equal round reactive to light, she tracks me, she is able to look towards me able to move to the left and the right her head, she is able to squeeze my fingers bilaterally, she is able to wiggle her toes, she is able to give me the thumbs up, her nephew translates for me and she is able to follow commands, I do cannot discern any focal weakness, in upper or lower extremities, can discern any facial droop, she is trying to mouth words, which are difficult to make out, currently she is on minimal vent settings, 30% FiO2 CPAP, she is tolerating well, will continue spontaneous breathing trial, as her blood sugars are improving mentation has significantly improved, will consider extubating in the next 15 to 30 minutes. I had a detailed discussion about patient's current clinical condition, I highly suspect that patient has suffered a severe hypoglycemic episode resulting in her unresponsiveness however there is always concern for brainstem event given her hypertensive episode we will continue her on a Cardene drip monitor blood pressures continue aspirin, statin. We discussed if we extubate her and she becomes unresponsive hypopnia, would family to agree for reintubation, they are agreeable, they understand the morbidity and mortality associated with reintubation, voiced understanding of all consents are, confirmed with patient's niece and nephew at bedside the patient is a full code. She also has bilateral calf swelling, it could be fluid, but given her relative immobility after her tibial plateau fracture, will order venous ultrasound. Order D-dimer. Order venous ultrasound, if confirmed with patient's nephew and niece bed multiple times that patient had not had any seizure-like episodes during this whole event Patient was monitored as inpatient in ICU, extubated, respiratory failure resolved, on room air, antibiotic therapy de-escalated for aspiration pneumonia on to Augmentin, mentation resumed back to baseline, alert oriented x 3, following all commands, no focal neurologic deficits. She also had a cardiac workup given elevated troponins, cardiac echocardiogram no acute findings, venous ultrasound negative for DVT, CT angiogram negative for pulmonary emboli. Blood pressures were monitored, blood pressures remained stable. In terms of the etiology, likely severe hypoglycemic event, she was managed with D10, eventually blood sugars remain reasonable and she was transitioned to subcu insulin her insulin requirements were 24 hours was 26 units. She was monitored on 70 3015 units twice daily blood sugars remain steady and reasonable. On discharge I am going to discharge her on 70/30 Humulin 15 units twice daily, if after 48 hours her blood sugars are greater than 300, she can increase it to 20 units twice daily, however I would keep this dose until she see her as her primary care provider and endocrinology. I had extensive discussion about hypoglycemia with patient and her nephew at bedside who helped translation, had extensive discussion about type 2 diabetes mellitus, about hypoglycemia than hyperglycemia Killss, we had extensive discussion about hypoglycemia protocols, what she should do in case she develops hypoglycemic symptoms, glucagon pen was prescribed, and hypoglycemia instructions were gone over with patient in detail. Patient and nephew voiced understanding, all questions answered, agreed to proceed. On admission there was concerns for stroke, during my evaluations patient had no focal neurologic deficits, likely patient's symptomatology was related to acute hypoglycemia, nonetheless I discharged on aspirin and statin with close follow-up with primary care provider as outpatient Physical Exam Const: COMMON NORMALS: no acute distress and patient oriented x3 Resp: COMMON NORMALS: normal respiratory effort, No retractions, No use of accessory muscles and clear to auscultation bilaterally AUSCULTATION: clear to auscultation bilaterally Cardio: COMMON NORMALS: regular rate, regular rhythm, S1 normal heart sound present and S2 normal heart sound present RATE: regular rate RHYTHM: regular rhythm HEART SOUNDS: S1 normal heart sound present and S2 normal heart sound present GI: COMMON NORMALS: Normal to inspection, nondistended, normoactive bowel sounds present and non-tender Extremity: COMMON NORMALS: no pedal edema Neuro: COMMON NORMALS: patient oriented x3, CN's II-XII intact bilaterally, moves all extremities and no focal motor deficits Psych: COMMON NORMALS: mental status grossly normal Urinary Catheter Management: Bailey: Cath Placed During This Visit: yes Reason for Continuing Indwelling Catheter: Other Urinary Catheter Date of Insertion: 06/22/23 Urinary Catheter Time of Insertion: 15:37 Discharge Data Studies Completed and Pending Completed Studies During Hospitalization Category Date Time Status CT angio chest PE protcl [id number] Routine Cat Scan 06/23/23 07:[address] head thrombolytic [id number] Stat Cat Scan 06/22/23 15:15 Completed CTA head neck [CT angio headneck* [id number]] Stat Cat Scan 06/22/23 15:19 Completed XR chest 1V portable [id number] Stat Exams 06/22/23 15:14 [place] [id number] Stat Ultrasound 06/22/23 18:05 Completed CV. echo complete* [id number] Stat Ultrasound 06/22/23 18:18 Completed Pending at discharge Category Date Time Status Blood Culture Stat Lab 06/22/23 17:10 Results Complete Blood Count w/Auto AM LABS Lab 06/25/23 04:00 Ordered Complete Blood Count w/Auto AM LABS Lab 06/26/23 04:00 Ordered Comprehensive Metabolic Panel AM LABS Lab 06/25/23 04:00 Ordered Comprehensive Metabolic Panel AM LABS Lab 06/26/23 04:00 Ordered Magnesium AM LABS Lab 06/25/23 04:00 Ordered Magnesium AM LABS Lab 06/26/23 04:00 Ordered Phosphorus AM LABS Lab 06/25/23 04:00 Ordered Phosphorus AM LABS Lab 06/26/23 04:00 Ordered Sputum Culture and Gram Stain Routine Lab 06/22/23 15:05 Results Radiology Impressions Head/Neck CTA 06/22/23 15:19 IMPRESSION: No large vessel occlusion. ASSESSMENT: ASPECTS ([place] Stroke Program Early CT Score) is 10. IMPRESSION: 1. No stenosis or occlusion. 2. Partially visualized left lower lobe atelectasis. REFERENCES: NASCET CRITERIA. The degree of stenosis in the cervical segment of the internal carotid artery is based on NASCET criteria. Normal is no stenosis. Mild is less than 50% stenosis. Moderate is 50-69% stenosis. Severe is 70% to 99% stenosis. Total occlusion is no detectable patent lumen. Laboratory Results WBC 4.12 10^3/uL (3.29-11.43) 06/24/23 04:52 Corrected WBC Cancelled 06/22/23 15:36 RBC 4.10 10^6/uL (3.85-5.65) 06/24/23 04:52 Hgb 12.50 g/dL (11.27-16.99) 06/24/23 04:52 Hct 38.5 % (36-47) 06/24/23 04:52 MCV 93.9 fl (85-98) 06/24/23 04:52 MCH 30.5 pg (27-33) 06/24/23 04:52 MCHC 32.5 g/dL (30-55) 06/24/23 04:52 RDW 13.5 % (12.1-15.1) 06/24/23 04:52 Plt Count 136 10^3/cmm (157-399) L 06/24/23 04:52 MPV 11.4 fL (7.4-10.4) H 06/24/23 04:52 Gran % Cancelled 06/22/23 15:36 Neut % (Auto) 47.8 % 06/24/23 04:52 Lymph % (Auto) 34.7 % 06/24/23 04:52 Towns % (Auto) 12.9 % 06/24/23 04:52 Eos % (Auto) 3.4 % 06/24/23 04:52 Baso % (Auto) 1.0 % 06/24/23 04:52 Neut # (Auto) 1.97 10^3/uL (1.8-7.7) 06/24/23 04:52 Lymph # (Auto) 1.4 10^3/uL (0.8-4.8) 06/24/23 04:52 Towns # (Auto) 0.5 10^3/uL (0.2-0.9) 06/24/23 04:52 Eos # (Auto) 0.1 10^3/uL (0.0-0.8) 06/24/23 04:52 Baso # (Auto) 0.0 10^3/uL (0.0-0.1) 06/24/23 04:52 Absolute Gran (auto) Cancelled 06/22/23 15:36 Nucleated RBC % (auto) 0 % 06/24/23 04:52 Nucleated RBCs # 0.0 /100WBC 06/24/23 04:52 PT 12.40 SECONDS (12.1-14.9) 06/22/23 15:36 INR 0.90 (0.8-1.2) 06/22/23 15:36 APTT 30.6 SECONDS (23.9-36.7) D 06/23/23 14:31 D-Dimer 3.04 ug/mLFEU (0-0.59) H 06/22/23 15:36 Specimen Type Arterial 06/22/23 15:17 Sample Site Brachial, left 06/22/23 15:17 ABG pH 7.39 (7.35-7.45) 06/22/23 15:17 ABG pCO2 41.5 mmHg (35-45) 06/22/23 15:17 ABG pO2 294.0 mmHg (80.0-100.0) H 06/22/23 15:17 ABG PO2/FiO2 Ratio 0 06/22/23 15:17 ABG HCO3 25.3 mmol/L (22-26) 06/22/23 15:17 ABG O2 Saturation 98.5 06/22/23 15:17 ABG Base Excess 0.3 mmol/L (-2.0-2.0) 06/22/23 15:17 Tyron Test N/a 06/22/23 15:17 A-a O2 Gradient 44.9 mmHg (5-10) H 06/22/23 15:17 Hematocrit 46.7 % (37-47) 06/22/23 15:17 Hgb O2 Saturation 97.9 % (95-100) 06/22/23 15:17 Carboxyhemoglobin < 0.0 %THgb (0.4-20.1) L 06/22/23 15:17 Methemoglobin 0.9 % (0.4-1.5) 06/22/23 15:17 Total Hemoglobin 15.2 g/dL (12-16) 06/22/23 15:17 Sodium 141.0 mmol/L (131-143) 06/22/23 15:17 Potassium 3.7 mmol/L (3.5-5.0) 06/22/23 15:17 Glucose 277.0 mg/dL (70-115) H 06/22/23 15:17 Ionized Calcium 1.2 mmol/L (1.1-1.4) 06/22/23 15:17 O2 Delivery Device Vent 06/22/23 15:17 FiO2 100.0 % 06/22/23 15:17 Tidal Volume 0.40 06/22/23 15:17 PEEP 6.0 cmH20 06/22/23 15:17 Silverware Buffing Machine Operator ID [id number] 06/22/23 15:17 Sodium 141 mmol/L (136-145) 06/24/23 04:52 Potassium 4.0 mmol/L (3.5-5.1) 06/24/23 04:52 Chloride 107 mmol/L (98-107) 06/24/23 04:52 Carbon Dioxide 23 mmol/L (22-29) 06/24/23 04:52 Anion Gap 15.0 (5-19) 06/24/23 04:52 BUN 14 mg/dL (8-23) 06/24/23 04:52 Creatinine 0.8 mg/dL (0.5-0.9) 06/24/23 04:52 GFR Calculation 71.8 mL/min (90-130) L 06/24/23 04:52 Glucose 171 mg/dL (65-115) H 06/24/23 04:52 POC Glucose 230 mg/dL (70-110) H 06/24/23 06:01 Estimat Average Glucose 146 06/22/23 17:10 Hemoglobin A1c 6.7 % (4.0-6.0) H 06/22/23 17:10 Calculated Osmolality 297 mOsm/kg (285-295) H 06/24/23 04:52 Lactic Acid 1.2 mmol/L (0.5-2.2) 06/22/23 15:36 Calcium 8.6 mg/dL (8.5-10.5) 06/24/23 04:52 Phosphorus 3.8 mg/dL (2.5-4.5) 06/24/23 04:52 Magnesium 2.1 mg/dL (1.7-2.3) 06/24/23 04:52 Total Bilirubin 0.6 mg/dL (0.15-1.2) 06/24/23 04:52 AST 17 U/L (0-32) 06/24/23 04:52 ALT 15 U/L (0-33) 06/24/23 04:52 Alkaline Phosphatase 79 U/L (35-105) 06/24/23 04:52 Ammonia 23 umol/L (11-51) 06/22/23 17:10 Creatine Kinase 109 U/L (26-192) 06/22/23 15:36 Creatine Kinase 111 U/L (26-192) 06/22/23 15:36 Troponin T Baseline 13 ng/L (0-10) H 06/22/23 15:36 Troponin T 120 Minute 20.93 ng/L (0-10) H 06/22/23 17:36 Delta Troponin T 7.93 ABS# (0-10) 06/22/23 17:36 Troponin T Hi Sens 6Hr 25.57 ng/L (0-10) H 06/22/23 21:24 Troponin T Hi Sens 6Hr Delta 12.57 ng/L (0-12) H* 06/22/23 21:24 Total Protein 5.9 g/dL (6.6-8.7) L 06/24/23 04:52 Albumin 3.3 g/dL (3.5-5.2) L 06/24/23 04:52 Globulin 2.6 g/dL (1.3-4.6) 06/24/23 04:52 Triglycerides 71 mg/dL (0-150) 06/22/23 17:36 Cholesterol 155 mg/dL (0-200) 06/22/23 17:36 LDL Cholesterol, Calc 81 mg/dL (50-129) 06/22/23 17:36 HDL Cholesterol 60 mg/dL (60-100) 06/22/23 17:36 LDL/HDL Ratio 1.35 RATIO (0.00-3.22) 06/22/23 17:36 Cholesterol/HDL Ratio 2.58 mg/dL (0.0-4.40) 06/22/23 17:36 Lipase 17 U/L (13-60) 06/22/23 15:36 TSH 0.43 uIU/mL (0.27-4.20) 06/22/23 15:36 Free T4 1.67 ng/dL (0.82-1.77) 06/22/23 15:36 Free T3 2.6 PG/ML (2.0-4.4) 06/22/23 15:36 Urine Color Yellow (Yellow) 06/22/23 15:35 Urine Appearance Clear (CLEAR) 06/22/23 15:35 Urine pH 8 (5-7) H 06/22/23 15:35 Ur Specific [place] 1.015 (1.005-1.030) 06/22/23 15:35 Urine Protein 1+ (Negative) H 06/22/23 15:35 Urine Glucose (UA) 2+ (Normal) H 06/22/23 15:35 Urine Ketones 1+ (Negative) H 06/22/23 15:35 Urine Blood Neg (Negative) 06/22/23 15:35 Urine Nitrate Negative (Negative) 06/22/23 15:35 Urine Bilirubin Neg (Negative) 06/22/23 15:35 Prot Sulfosalicylic Acd Positive (Negative) 06/22/23 15:35 Urine Urobilinogen Norm mg/dL (Negative) 06/22/23 15:35 Ur Leukocyte Esterase Negative (Negative) 06/22/23 15:35 Urine RBC None /hpf (0-2) 06/22/23 15:35 Urine WBC 0-4 /hpf (0-5) H 06/22/23 15:35 Ur Squamous Epith Cells None /hpf (0-5) 06/22/23 15:35 Ur Transition Epith Cell 0-4 /hpf 06/22/23 15:35 Ur Renal Epithelial Cell 0-4 /hpf 06/22/23 15:35 Amorphous Sediment Not Reportable 06/22/23 15:35 Urine Bacteria None /hpf (NONE) 06/22/23 15:35 Hyaline Casts 0-4 /lpf H 06/22/23 15:35 Urine Mucus 1+ /hpf 06/22/23 15:35 Salicylates < 0.3 mg/dL (3-10) L 06/22/23 15:36 Urine Opiates Screen Negative ng/mL (Negative) 06/22/23 15:35 Acetaminophen < 5.0 ug/mL (10-30) L 06/22/23 15:36 Ur Barbiturates Screen Negative ng/mL (Negative) 06/22/23 15:35 Ur Phencyclidine Scrn Negative ng/mL (Negative) 06/22/23 15:35 Ur Amphetamines Screen Negative ng/mL (Negative) 06/22/23 15:35 U Benzodiazepines Scrn Negative ng/mL (Negative) 06/22/23 15:35 Urine Cocaine Screen Negative ng/mL (Negative) 06/22/23 15:35 U Marijuana (THC) Screen Negative ng/mL (Negative) 06/22/23 15:35 Ethyl Alcohol < 10 mg/dL (0-10) 06/22/23 15:36 Serum Ketones Negative (Negative) 06/22/23 15:36 Vitals Last Vital Signs Temp 98.1 F 06/24/23 08:00 Pulse 85 06/24/23 08:00 Resp 16 06/24/23 08:00 BP 136/73 06/24/23 08:00 Pulse Ox 94 06/24/23 08:00 O2 Del Method Room Air 06/24/23 04:00 FiO2 30 06/22/23 17:50 Discharge Plan Discharge Patient Disposition: Home Condition: Stable Prescriptions: New (DME) diabetic testing strips and lancets See Rx Instructions .Route .MEDSUPPLY Qty: 100 0RF Rx Instructions: lancets #100 strips #100 check bs tid atorvastatin 40 mg Tablet 40 mg PO BEDTIME 30 Days Qty: 30 0RF aspirin 81 mg Tablet,Delayed Release (Dr/Ec) 81 mg PO DAILY 30 Days Qty: 30 0RF amoxicillin-pot clavulanate 875-125 mg Tablet 1 tab PO BID 5 Days Qty: 10 0RF glucagon HCl [Glucagon (HCl) Emergency Kit] 1 mg recon soln 1 mg IM Q20M PRN (Reason: hypoglycemia) Qty: 1 0RF Rx Instructions: until target blood sugar attained Continued hydrochlorothiazide 25 mg tablet 25 mg PO DAILY (DME) [place] Knee Brace See Rx Instructions .Route .MEDSUPPLY Qty: 1 0RF Rx Instructions: As directed lisinopril 40 mg tablet 40 mg PO DAILY amlodipine 2.5 mg tablet 2.5 mg PO DAILY tramadol 50 mg tablet 50 mg PO QID PRN (Reason: Pain) levothyroxine 125 mcg tablet 125 mcg PO QAM mirtazapine 7.5 mg tablet 7.5 mg PO BEDTIME Changed Humulin 70/30 U-100 KwikPen 100 unit/mL (70-30) insulin pen 15 unit SUBCUT BID Qty: 15 0RF Discharge Orders: Discharge Order (Routine); Ordered 06/24/23 Ordered By: Stuart Christianson Referrals: Maxine Walker MD [Primary Care Provider] - 1-3 days Miguelangel Bustillos MD [Physician] - 2 weeks Discharge Diet: Diabetic Discharge Activity: Resume usual activity Patient Instructions: Hypoglycemia in a Person with Diabetes (DC), What to Do if Your Blood Sugar is Low (DC), Opioid Safety Activity Restrictions/Additional Instructions: - Please monitor blood sugars closely -If you develop hypoglycemia, which is any blood sugar at which you feel lightheaded or dizzy and sweaty he is using glucagon as prescribed after that consume something with glucose in it such as a sugar tablet, or a sugary drink or orange juice -For now take Humalog 70/30 15 units twice daily -If your blood sugars are greater than 300 after 48 hours -You can increase the Humalog 7030 to 20 units twice daily -But I would keep this dose, and only have your primary care provider change your Humulin 70/30 dose --If your blood sugar is greater than 500 go to the emergency room -If your blood sugar is less than 60 or at anytime you feel lightheaded or dizzy or diaphoretic or have chest palpitations check your blood sugar, and eat a hard candy or drink orange juice and go immediately to the emergency room -Remember hypoglycemia kills, so if his blood sugar is less than 60 we have to increase it by taking in a sugary meal such as a hard candy or orange juice and go to the emergency room -If you have any questions please call us where here to help Discharge Attestations Time Spent in Discharge Care*: greater than 30 min Quality Metrics Clinical Quality Measures [ No reported AMI, CVA or VTE this stay] Coding Level of Care Code 41477 Total time (in minutes) for Discharge: 45 Diagnoses Hypertensive urgency I16.0 Altered mental status R41.82 Hypoglycemia E16.2 Acute respiratory failure J96.00 Pneumonia J18.9 PRES (posterior reversible encephalopathy syndrome) I67.83
[2023-06-24 11:03] LABS: Glucose Point of Care 355 mg/dL (70-110)
[2023-06-24 12:03] VITALS: BP 136/73; PULSE 85; RESP 16; TEMP 36.7; O2SAT 94
== END 2023-06-24 11:58 | disposition home or self-care (01) | DRG 637 ==
LOC: ER 16:15 → ICU 18:25 → MEDSURG 06-23 17:09
PROVIDERS: Internal Medicine; Admitting Provider Family Medicine; Emergency Provider Family Medicine; PCP Internal Medicine; Visit Provider Family Medicine
DX: E11.649 Type 2 diabetes mellitus with hypoglycemia without coma (principal); I67.83 Posterior reversible encephalopathy syndrome; J69.0 Pneumonitis due to inhalation of food and vomit; J96.00 Acute respiratory failure, unspecified whether with hypoxia or hypercapnia; Z79.4 Long term (current) use of insulin; E03.9 Hypothyroidism, unspecified; I16.0 Hypertensive urgency; I10 Essential (primary) hypertension
CPT/HCPCS: 36415; 36416; 36600; 51702; 70450; 70496; 70498; 71045; 71275; 80051; 80053; 80061; 80306; 80307; 81001; 82009; 82140; 82330; 82550; 82805; 82962; 83036; 83605; 83690; 83735; 84100; 84439; 84443; 84481; 84484; 85025; 85378; 85610; 85730; 87040; 87070; 87205; 92523; 92610; 93005; 93306; 93970; 94002; 94664; 94799; 96365; 96367; 96372; 96375; 96376; 97110; 97116; 97161; 97165; 99291; 99292; C9113; J1644; J1650; J1815; J2250; J2543; J3490; J7030; J7040; J7799; Q9967

== ENCOUNTER → 2023-06-30 08:56 | Outpatient (BNVA) | payer MEDICARE, MEDICAID, SELFPAY | PROVIDERS: PCP Internal Medicine; Visit Provider Internal Medicine | DX: E11.649 Type 2 diabetes mellitus with hypoglycemia without coma (principal); E16.0 Drug-induced hypoglycemia without coma; T38.3X5A Adverse effect of insulin and oral hypoglycemic [antidiabetic] drugs, initial encounter; E03.9 Hypothyroidism, unspecified; X58.XXXA Exposure to other specified factors, initial encounter; Z79.4 Long term (current) use of insulin | CPT/HCPCS: 36415; 80053; 84681; 86337; 86341; 99204 ==

== ENCOUNTER → 2023-07-14 07:41 | Outpatient (BNVA) | payer MEDICARE, MEDICAID, SELFPAY | PROVIDERS: PCP Internal Medicine; Visit Provider Internal Medicine | DX: E16.0 Drug-induced hypoglycemia without coma; T38.3X5A Adverse effect of insulin and oral hypoglycemic [antidiabetic] drugs, initial encounter; E03.9 Hypothyroidism, unspecified; E11.649 Type 2 diabetes mellitus with hypoglycemia without coma; X58.XXXA Exposure to other specified factors, initial encounter; Z79.4 Long term (current) use of insulin; Z79.890 Hormone replacement therapy | CPT/HCPCS: 99214 ==

== ENCOUNTER → 2023-11-10 11:00 | Outpatient (BNVA) | payer MEDICARE, MEDICAID, SELFPAY | PROVIDERS: PCP Internal Medicine; Visit Provider Internal Medicine | DX: E16.0 Drug-induced hypoglycemia without coma; T38.3X5A Adverse effect of insulin and oral hypoglycemic [antidiabetic] drugs, initial encounter; E03.9 Hypothyroidism, unspecified; E11.649 Type 2 diabetes mellitus with hypoglycemia without coma; X58.XXXA Exposure to other specified factors, initial encounter | CPT/HCPCS: 99214 ==

== ENCOUNTER → 2024-03-28 09:45 | Outpatient (BNVA) | payer MEDICARE, MEDICAID, SELFPAY | PROVIDERS: PCP Internal Medicine; Visit Provider Podiatrist Foot & Ankle Surgery | DX: E11.42 Type 2 diabetes mellitus with diabetic polyneuropathy (principal); L60.3 Nail dystrophy; Z79.4 Long term (current) use of insulin | CPT/HCPCS: 99213 ==

== ENCOUNTER 2024-04-14 08:32 | Outpatient (CLI) | payer MEDICARE, MEDICAID, SELFPAY ==
[2024-04-14 09:08] LABS: Eosinophils % 0.9 %; Hematocrit 43.4 % (36-47); Lymphocytes % 28.1 %; Mean Corpuscular HGB Conc 33.4 g/dL (30-55); Mean Corpuscular Volume 89.7 fl (85-98); Mean Platelet Volume 12.1 fL (7.4-10.4); Monocytes # 0.4 10^3/uL (0.2-0.9); Monocytes % 11.3 %; Neutrophils # 2.06 10^3/uL (1.8-7.7); Neutrophils % 59.7 %; Nucleated Red Blood Cells % 0 %; Platelet Count 108 10^3/cmm (157-399); Red Blood Count 4.84 10^6/uL (3.85-5.65); Red Cell Distribution Width 12.7 % (12.1-15.1); White Blood Count 3.45 10^3/uL (3.29-11.43)
[2024-04-14 09:19] LABS: Estmated Average Glucose 206; Hemoglobin A1C 8.8 % (4.0-6.0)
[2024-04-14 09:35] LABS: Alanine Aminotransferase 31 U/L (0-33); Albumin Level 4.5 g/dL (3.5-5.2); Alkaline Phosphatase 97 U/L (35-105); Anion Gap 12.1 (5-19); Aspartate Amino Transferase 29 U/L (0-32); Blood Urea Nitrogen 25 mg/dL (8-23); Calcium 9.6 mg/dL (8.5-10.5); Carbon Dioxide 27 mmol/L (22-29); Chloride 104 mmol/L (98-107); Globulin 3.1 g/dL (1.3-4.6); Glomerular Filtration Rate 83.5 mL/min (90-130); Glucose 238 mg/dL (65-115); Osmolality Calculated 300 mOsm/kg (285-295); Potassium 4.1 mmol/L (3.5-5.1); Sodium 139 mmol/L (136-145); Thyroid Stimulating Hormone 0.18 uIU/mL (0.27-4.20); Total Bilirubin 0.5 mg/dL (0.15-1.2); Total Protein 7.6 g/dL (6.6-8.7)
== END 2024-04-14 08:33 | disposition home or self-care (01) ==
LOC: LAB 08:36
PROVIDERS: PCP Internal Medicine; Visit Provider Internal Medicine
DX: E10.8 Type 1 diabetes mellitus with unspecified complications (principal); E03.9 Hypothyroidism, unspecified
CPT/HCPCS: 36415; 80053; 83036; 84443; 85025

== ENCOUNTER → 2025-03-27 10:16 | Outpatient (BNVA) | payer MEDICARE, MEDICAID, SELFPAY | PROVIDERS: PCP Internal Medicine; Visit Provider Podiatrist Foot & Ankle Surgery | DX: E11.42 Type 2 diabetes mellitus with diabetic polyneuropathy (principal); L60.3 Nail dystrophy; Z79.4 Long term (current) use of insulin | CPT/HCPCS: 99213 ==

== ENCOUNTER 2025-04-11 13:23 | Outpatient (CLI) | payer MEDICARE, MEDICAID, SELFPAY ==
--- NOTE | 2025-04-11 13:32 | USR_ITS ---
PROCEDURE INFORMATION: Exam: US Duplex Bilateral Lower Extremity Arteries Exam date and time: 04/11/2025 1:45 PM Age: 70 years old Clinical indication: Condition or disease; Other: Claudication; Additional info: Bilateral claudication TECHNIQUE: Imaging protocol: Real-time ultrasound scan of the arteries of the bilateral lower extremities with 2-D leavitt scale, color Doppler flow and spectral waveform analysis. Images documented and saved. COMPARISON: CT knee RT wo con* [id number] 04/11/2023 5:26 PM FINDINGS: Right common femoral artery: No occlusion or significant stenosis. Normal waveform. Right superficial femoral artery: No occlusion or significant stenosis. Normal waveform. Right popliteal artery: No occlusion or significant stenosis. Normal waveform. Right calf/foot arteries: No occlusion or significant stenosis in the visualized arteries. Normal waveforms. Dorsalis pedis artery is patent. Left common femoral artery: No occlusion or significant stenosis. Normal waveform. Left superficial femoral artery: No occlusion or significant stenosis. Normal waveform. Left popliteal artery: No occlusion or significant stenosis. Normal waveform. Left calf/foot arteries: No occlusion or significant stenosis in the visualized arteries. Normal waveforms. Dorsalis pedis artery is patent. Right Ankle-Brachial Index: 0.84. Left Ankle-Brachial Index: Noncompressible. US/[place] [id number] IMPRESSION: No evidence of hemodynamically significant lower extremity arterial stenosis or occlusion.
== END 2025-04-11 13:24 | disposition home or self-care (01) ==
LOC: RAD 13:26
PROVIDERS: PCP Internal Medicine; Visit Provider Internal Medicine
DX: I73.9 Peripheral vascular disease, unspecified (principal)
CPT/HCPCS: 93925